=== PATIENT | female | born 1990 | race American Indian/Alaskan Native ===

== ENCOUNTER 2016-12-25 21:29 | Emergency (ER) | payer MEDICAID ==
[2016-12-25 22:48] LABS: Basophils % (Auto) 0.6 % (0.0-1.8); Eosinophils % (Auto) 0.7 % (0.0-4.3); Hematocrit 33.4 % (30.3-42.9); Mean Corpuscular HGB Conc 33 % (30-34); Mean Corpuscular Hemoglobin 28 pg (28-32); Mean Corpuscular Volume 85 fl (79-97); Platelet Count 171 K/mm3 (140-440); Red Blood Count 3.92 M/mm3 (3.65-5.03); Red Cell Distribution Width 16.3 % (13.2-15.2); White Blood Count 6.5 K/mm3 (4.5-11.0)
[2016-12-25 23:25] LABS: Alanine Aminotransferase 21 units/L (7-56); Albumin 4.1 g/dL (3.9-5); Albumin/Globulin Ratio 1.5 %; Alkaline Phosphatase 43 units/L (35-129); Anion Gap 16 mmol/L; BUN/Creatinine Ratio 14; Blood Urea Nitrogen 7 mg/dL (7-17); Carbon Dioxide 24 mmol/L (22-30); Chloride 98.8 mmol/L (98-107); Glucose 83 mg/dL (65-100); Lipase 28 units/L (13-60); Potassium 4.1 mmol/L (3.6-5.0); Sodium 135 mmol/L (137-145); Total Protein 6.8 g/dL (6.3-8.2)
[2016-12-26] MEDS ORDERED: NACL 0.9% 1000 ML 1,000 ML IV ONE (02:51)
[2016-12-26 04:18] LABS: Bilirubin,Urine NEG (Negative); Blood,Urine NEG (Negative); Ketones,Urine NEG (Negative); Leukocyte Esterase,Urine SM (Negative); Mucus,Urine FEW /HPF; Nitrite,Urine NEG (Negative); Protein,Urine <15 mg/dL mg/dL (Negative); Urobilinogen,Urine < 2.0 mg/dL (<2.0)
--- NOTE | 2016-12-26 04:46 | Ultrasound Report ---
FINAL REPORT PROCEDURE: US OB < = 14 WEEKS FETUS TECHNIQUE: Real-time transabdominal sonography of the uterus, placenta, amniotic fluid, adnexa, and fetus was performed with image documentation. Measurements were obtained to determine age/size. M-mode Doppler was used to document heartbeat. CPT 40279 HISTORY: preg, abd pain COMPARISON: No prior studies are available for comparison. FINDINGS: CRL: 23.3 mm, which corresponds to a gestational age of: 9 weeks, 0 days. Yolk Sac: Normal. Embryonic Cardiac Activity: 178 beats per minute Gestational Sac: Normal. Amniotic fluid: Normal. Cervix: Normal. Right Ovary: There is a 3.3 centimeter corpus luteal cyst. Left Ovary: Normal. Estimated delivery date: 07/31/2017 Uterus and adnexa: Normal. IMPRESSION: Single live intrauterine gestation at approximately 9 weeks. EDC by US 07/31/2017
--- NOTE | 2016-12-26 04:54 | Ultrasound Report ---
FINAL REPORT EXAM: US OB TRANSVAGINAL HISTORY: preg, abd pain COMPARISONS: Transabdominal ultrasound of the same date FINDINGS: Transvaginal grayscale, color Doppler and M-mode first-trimester ultrasound A single living intrauterine is present with recorded cardiac activity of 178 beats per minute and crown-rump length of approximately 23 millimeters, which corresponds to estimated gestational age of 9 weeks 0 days and estimated delivery date of 07/31/2017. A normal appearing 4-5 millimeter yolk sac is present. A nabothian cyst and small amount of free pelvic fluid are noted. The Functional right ovarian cyst measures up to 3.3 cm. The ovaries are otherwise sonographically unremarkable and measure 4.9 x 3.3 x 4.2 cm on the right and 3.3 x 1.7 x 1.9 cm on the left. IMPRESSION: Single living intrauterine with estimated gestational age of 9 weeks 0 days and delivery date of 07/31/2017. No acute complication identified.
--- NOTE | 2016-12-26 06:15 | Emergency Department Report ---
HPI - General Chief Complaint: Nausea/Vomiting/Diarrhea Time Seen by Provider: 12/26/16 02:45 - HPI HPI: This is a 26-year-old female presents the emergency department with a complaint of some nausea, vomiting and some generalized weakness and/or dizziness that started earlier this evening. She also complained of little bit of lower abdominal pressure. She denies any vaginal bleeding, dysuria. She does complain of some vaginal discharge that started this morning as well. She denies any history of STD. The patient says she is about 7 weeks' . With this she is at with one previous miscarriage and one child. She had a home test and this was confirmed at the health department. She is not currently on vitamins. She does not have any PROMOTIONS COORDINATOR. ED Past Medical Hx - Past Medical History Hx Hypertension: No Hx Congestive Heart Failure: No Hx Diabetes: No Hx Deep Vein Thrombosis: No Hx Renal Disease: No Hx Sickle Cell Disease: No Hx Seizures: No Hx Asthma: No Hx COPD: No Additional medical history: prenatel vit - Surgical History Additional Surgical History: d&c - Social History Smoking Status: Never Smoker Substance Use Type: None - Medications Home Medications: Home Medications Medication Instructions Recorded Confirmed Last Taken Type Vit 90/Iron Fum/Folic 1 tab PO DAILY 03/30/14 06/10/14 06/10/14 10:00 History [ Formula] Ciprofloxacin HCl [Ciprofloxacin 500 mg PO BID #10 tablet 12/22/15 Unknown Rx TAB] Ferrous Sulfate [Feosol 325 MG tab] 325 mg PO QDAY #30 tablet 12/22/15 Unknown Rx Ibuprofen [Motrin] 800 mg PO Q8HR PRN #30 tablet 12/22/15 Unknown Rx Doxylamine Succinate/Vit B6 2 each PO QHS PRN #20 tablet. 12/26/16 Unknown Rx [Sterling Fung 10-10 mg Tablet] Vit No.130/Iron/Folic 1 each PO QDAY #30 tablet 12/26/16 Unknown Rx [ Tablet] metroNIDAZOLE 0.75% [Metrogel 1 applicatio VG QHS #1 tube 12/26/16 Unknown Rx 0.75% TOPICAL] ED Review of Systems ROS: Stated complaint: N/V 7 WEEKS Other details as noted in HPI Comment: All other systems reviewed and negative Constitutional: denies: chills, fever Eyes: denies: eye pain, eye discharge, vision change ENT: denies: ear pain, throat pain Respiratory: denies: cough, shortness of breath, wheezing Cardiovascular: denies: chest pain, palpitations Gastrointestinal: abdominal pain, nausea, vomiting Genitourinary: denies: urgency, dysuria, discharge Musculoskeletal: denies: back pain, joint swelling, arthralgia Skin: denies: rash, lesions Neurological: other (dizziness). denies: headache Physical Exam - Physical Exam Vital Signs: Vital Signs 12/25/16 12/26/16 21:43 01:58 Temperature 98.8 F 98.7 F Pulse Rate 76 75 Respiratory 18 17 Rate Blood Pressure 107/53 Blood Pressure 98/56 [Left] O2 Sat by Pulse 100 99 Oximetry Physical Exam: GENERAL: The patient is well-developed well-nourished. HENT: Normocephalic. Atraumatic. Patient has moist mucous membranes. EYES: Extraocular motions are intact. Pupils equal reactive to light bilaterally. No nystagmus. NECK: Supple. Trachea is midline. CHEST/LUNGS: Clear to auscultation. There is no respiratory distress noted. HEART/CARDIOVASCULAR: Regular. There is no tachycardia. There is no gallop rub or murmur. ABDOMEN: Abdomen is soft, nontender. Patient has normal bowel sounds. There is no abdominal distention. SKIN: There is no rash. There is no edema. There is no diaphoresis. NEURO: The patient is awake, alert, and oriented. The patient is cooperative. The patient has no focal neurologic deficits. The patient has normal speech. MUSCULOSKELETAL: There is no tenderness or deformity. There is no limitation range of motion. There is no evidence of acute injury. : There is a mild to moderate amount of some malodorous yellow discharge in the vaginal vault. ED Course Vital Signs 12/25/16 12/26/16 21:43 01:58 Temperature 98.8 F 98.7 F Pulse Rate 76 75 Respiratory 18 17 Rate Blood Pressure 107/53 Blood Pressure 98/56 [Left] O2 Sat by Pulse 100 99 Oximetry ED Medical Decision Making - Lab Data Result diagrams: 12/25/16 22:00 12/25/16 22:00 - Radiology Data Radiology results: report reviewed PROCEDURE: US OB lt; = 14 WEEKS FETUS TECHNIQUE: Real-time transabdominal sonography of the uterus, placenta, amniotic fluid, adnexa, and fetus was performed with image documentation. Measurements were obtained to determine age/size. M-mode Doppler was used to document heartbeat. CPT 60009 HISTORY: preg, abd pain COMPARISON: No prior studies are available for comparison. FINDINGS: CRL: 23.3 mm, which corresponds to a gestational age of: 9 weeks, 0 days. Yolk Sac: Normal. Embryonic Cardiac Activity: 178 beats per minute Gestational Sac: Normal. Amniotic fluid: Normal. Cervix: Normal. Right Ovary: There is a 3.3 centimeter corpus luteal cyst. Left Ovary: Normal. Estimated delivery date: 07/31/2017 Uterus and adnexa: Normal. IMPRESSION: Single live intrauterine gestation at approximately 9 weeks. EDC by US 07/31/2017 Transcribed By: CO Dictated By: DARREL CHOWDARY MD Electronically Authenticated By: DARREL CHOWDARY MD Signed Date/Time: 12/26/16 - Medical Decision Making 26-year-old female presents with hyperemesis gravidarum. Attempted at first to avoid Zofran but she was unable to keep down liquids or get rid of the nausea and eventually she requested the Zofran despite knowing the very small percentage chance of risk to . She was given IV fluid resuscitation. Eventually she was able to keep down crackers and juice. Ultrasound shows intrauterine . She was started on vitamins. Pelvic exam showed malodorous yellow discharge that came back positive for trichomoniasis. After speaking with PROMOTIONS COORDINATOR, she was started on MetroGel vaginally. She will be contacted if gonorrhea or chlamydia comes back positive. She was given multiple referrals for PROMOTIONS COORDINATOR. Vital signs stable including being afebrile. - Differential Diagnosis , miscarriage, hyperemesis gravidarum, food poisoning Critical Care Time: No Critical care attestation.: If time is entered above; I have spent that time in minutes in the direct care of this critically ill patient, excluding procedure time. ED Disposition Clinical Impression: Trichomoniasis Qualifiers: Weeks of gestation: 9 weeks Qualified Code(s): Z3A.09 - 9 weeks gestation of Hyperemesis Qualifiers: Vomiting type: unspecified Nausea presence: unspecified Qualified Code(s): R11.10 - Vomiting, unspecified Nausea & vomiting Qualifiers: Vomiting type: unspecified Vomiting Intractability: non-intractable Qualified Code(s): R11.2 - Nausea with vomiting, unspecified Disposition: DC-01 TO HOME OR SELFCARE Is pt being admited?: No Condition: Stable Instructions: (ED), Hyperemesis Gravidarum (ED), Trichomoniasis (ED) , Acute Nausea and Vomiting (ED) Additional Instructions: Please follow up with a PROMOTIONS COORDINATOR in the next few days. Increase your oral rehydration. Use the antibiotics, MetroGel, as prescribed. I have started you on vitamins. Return to the emergency Department with any worsening of her symptoms, inability to stay hydrated or intractable vomiting, vaginal bleeding, or any acute distress. Prescriptions: Doxylamine Succinate/Vit B6 [Sterling Fung 10-10 mg Tablet] 2 each PO QHS PRN #20 tablet. PRN Reason: Nausea metroNIDAZOLE 0.75% [Metrogel 0.75% TOPICAL] 1 applicatio VG QHS #1 tube Vit No.130/Iron/Folic [ Tablet] 1 each PO QDAY #30 tablet Referrals: [facility] [Primary Care Provider] - 3-5 Days [facility] [Provider Group] - 3-5 Days [facility] [Provider Group] - 3-5 Days [facility] [Provider Group] - 3-5 Days Forms: Work/School Release Form(ED) Time of Disposition: 06:37
[2016-12-26] MEDS ORDERED: ZOFRAN IV ONE (06:17)
[2016-12-26] MEDS ORDERED: ZOFRAN ODT ONE (06:20)
[2016-12-26] MEDS ORDERED: NACL 0.9% 500 ML 500 ML IV ONE (06:33)
[2016-12-26 09:29] VITALS: BP 106/64
== END 2016-12-26 10:16 | disposition home or self-care (01) ==
LOC: ED 21:29
DX: O26.891 Other specified pregnancy related conditions, first trimester (principal); A59.9 Trichomoniasis, unspecified; O21.0 Mild hyperemesis gravidarum; Z3A.09 9 weeks gestation of pregnancy
CPT/HCPCS: 36415; 76801; 76817; 80053; 81001; 83690; 84703; 85025; 87210; 93005; 93010; 96361; 96374; 99285; J7030; J7040; Q0162

== ENCOUNTER 2017-02-19 17:16 | Emergency (ER) | payer MEDICAID ==
[2017-02-19 18:51] VITALS: BP 106/62
== END 2017-02-20 00:15 | disposition left against medical advice (07) ==
LOC: ED 17:16
DX: R42 Dizziness and giddiness (principal); Z53.21 Procedure and treatment not carried out due to patient leaving prior to being seen by health care provider
CPT/HCPCS: 87400

== ENCOUNTER 2017-02-21 18:00 | Emergency (ER) | payer MEDICAID ==
[2017-02-21 21:00] LABS: Basophils % (Auto) 0.2 % (0.0-1.8); Eosinophils % (Auto) 0.2 % (0.0-4.3); Hematocrit 33.9 % (30.3-42.9); Hemoglobin 11.3 gm/dl (10.1-14.3); Lymphocytes # (Auto) 2.2 K/mm3 (1.2-5.4); Lymphocytes % (Auto) 30.8 % (13.4-35.0); Mean Corpuscular HGB Conc 33 % (30-34); Mean Corpuscular Hemoglobin 30 pg (28-32); Mean Corpuscular Volume 89 fl (79-97); Monocytes # (Auto) 0.5 K/mm3 (0.0-0.8); Monocytes % (Auto) 7.4 % (0.0-7.3); Platelet Count 184 K/mm3 (140-440); Red Blood Count 3.79 M/mm3 (3.65-5.03); Red Cell Distribution Width 14.3 % (13.2-15.2)
[2017-02-21] MEDS ORDERED: ZOFRAN ODT PO ONE ×2 (21:10→21:11)
[2017-02-21] MEDS ORDERED: ZOFRAN ODT ONE (21:12)
[2017-02-21 21:24] LABS: BUN/Creatinine Ratio 20; Blood Urea Nitrogen 10 mg/dL (7-17); Calcium 9.2 mg/dL (8.4-10.2); Hemolysis Index 7
--- NOTE | 2017-02-22 04:52 | Emergency Department Report ---
ED Abdominal Pain HPI - General Chief Complaint: Weakness Stated Complaint: VOMITING/DIZZINESS 16 WEEKS PREG Time Seen by Provider: 02/22/17 04:10 Source: patient, family Mode of arrival: Ambulatory Limitations: No Limitations - History of Present Illness Initial Comments: Patient here report that she is feeling weak she is 16 weeks and she is having nausea and vomiting in. She said she has MED PEDS. Patient reports that she is having some abdominal pain and she can't tell if his round ligament pain because she is been having nausea and vomited with this. She is also reported that she was diagnosed with hypertension today and reports she was having generalized weakness. Patient blood pressure is 106/64 in triage here. She said she vomited 66. Pelvic pain is 2-3-10. Crampy she denies any sexual activity within the last 48 hours. She says she had small amount of vaginal bleeding when she went to PE yesterday morning but she hadn't had any since she said when she wiped she saw light blood. She did not call her MED PEDS and told her MED PEDS. She says she feels like she has a urinary tract infection because she is having nausea vomiting and pelvic pain and when she had a urinary tract infection and past status what happened. Patient denies eating anything new over the last 24 hours. She denies any back pain. Denies any cough or chest pain. No [id number] medication taken. She is on vitamin and she says she has had ultrasound in the past that shows that the baby was in her uterus. MD Complaint: abdominal pain, other (weakness with nausea and vomiting) Onset/Timin -: days(s) Location: suprapubic Radiation: none Migration to: no migration Severity: mild Severity scale (0 -10): 3 Quality: cramping Consistency: intermittent Improves With: nothing Worsens With: vomiting Context: other (patient at 16 weeks) Associated Symptoms: nausea, vomiting. denies: diarrhea, fever, chills, constipation, dysuria, hematemesis, hematochezia, melena, hematuria, anorexia, syncope Treatments Prior to Arrival: other (none) - Related Data Home Medications Medication Instructions Recorded Confirmed Last Taken Vit 90/Iron Fum/Folic 1 tab PO DAILY 03/30/14 06/10/14 06/10/14 10:00 [ Formula] Previous Rx's Medication Instructions Recorded Last Taken Type Ciprofloxacin HCl [Ciprofloxacin 500 mg PO BID #10 tablet 12/22/15 Unknown Rx TAB] Ferrous Sulfate [Feosol 325 MG tab] 325 mg PO QDAY #30 tablet 12/22/15 Unknown Rx Ibuprofen [Motrin] 800 mg PO Q8HR PRN #30 tablet 12/22/15 Unknown Rx Vit No.130/Iron/Folic 1 each PO QDAY #30 tablet 12/26/16 Unknown Rx [ Tablet] metroNIDAZOLE 0.75% [Metrogel 1 applicatio VG QHS #1 tube 12/26/16 Unknown Rx 0.75% TOPICAL] Nitrofurantoin Monohyd/M-Cryst 100 mg PO Q12H 7 Days #14 capsule 02/22/17 Unknown Rx [Macrobid 100 mg Capsule] Ondansetron [Zofran Odt] 4 mg PO Q8HR PRN 5 Days #15 02/22/17 Unknown Rx tab.rapdis Allergies Allergy/AdvReac Type Severity Reaction Status Date / Time amoxicillin Allergy Hives Verified 02/21/17 19:24 haloperidol [From Haldol] Allergy Hives Verified 02/02/13 12:52 haloperidol lactate Allergy Hives Verified 02/02/13 12:52 [From Haldol] Penicillins Allergy Hives Verified 02/02/13 12:52 ED Review of Systems ROS: Stated complaint: VOMITING/DIZZINESS 16 WEEKS PREG Other details as noted in HPI Comment: All other systems reviewed and negative Constitutional: no symptoms reported Eyes: denies: eye pain ENT: denies: throat pain, congestion Respiratory: no symptoms reported Cardiovascular: denies: chest pain, palpitations, dyspnea on exertion, edema, syncope, paroxysmal nocturnal dyspnea Gastrointestinal: abdominal pain, nausea, vomiting. denies: diarrhea, constipation, hematemesis, melena, hematochezia Genitourinary: denies: urgency, dysuria, frequency, hematuria, discharge Musculoskeletal: denies: back pain, joint swelling, arthralgia, myalgia Skin: denies: rash Neurological: weakness. denies: headache, numbness, paresthesias, confusion, abnormal gait, vertigo ED Past Medical Hx - Past Medical History Previous Medical History?: Yes Hx Hypertension: No Hx Congestive Heart Failure: No Hx Diabetes: No Hx Deep Vein Thrombosis: No Hx Renal Disease: No Hx Sickle Cell Disease: No Hx Seizures: No Hx Asthma: No Hx COPD: No Additional medical history: prenatel vit - Surgical History Past Surgical History?: Yes Additional Surgical History: d&c - Family History Family history: hypertension - Social History Smoking Status: Never Smoker Substance Use Type: None - Medications Home Medications: Home Medications Medication Instructions Recorded Confirmed Last Taken Type Vit 90/Iron Fum/Folic 1 tab PO DAILY 03/30/14 06/10/14 06/10/14 10:00 History [ Formula] Ciprofloxacin HCl [Ciprofloxacin 500 mg PO BID #10 tablet 12/22/15 Unknown Rx TAB] Ferrous Sulfate [Feosol 325 MG tab] 325 mg PO QDAY #30 tablet 12/22/15 Unknown Rx Ibuprofen [Motrin] 800 mg PO Q8HR PRN #30 tablet 12/22/15 Unknown Rx Vit No.130/Iron/Folic 1 each PO QDAY #30 tablet 12/26/16 Unknown Rx [ Tablet] metroNIDAZOLE 0.75% [Metrogel 1 applicatio VG QHS #1 tube 12/26/16 Unknown Rx 0.75% TOPICAL] Nitrofurantoin Monohyd/M-Cryst 100 mg PO Q12H 7 Days #14 capsule 02/22/17 Unknown Rx [Macrobid 100 mg Capsule] Ondansetron [Zofran Odt] 4 mg PO Q8HR PRN 5 Days #15 02/22/17 Unknown Rx tab.rapdis ED Physical Exam - General Limitations: No Limitations General appearance: alert, in no apparent distress - Head Head exam: Present: atraumatic, normocephalic, normal inspection - Eye Eye exam: Present: normal appearance, PERRL, EOMI. Absent: periorbital swelling , periorbital tenderness Pupils: Present: normal accommodation - ENT ENT exam: Present: normal exam, normal orophraynx, mucous membranes moist, TM's normal bilaterally, normal external ear exam - Neck Neck exam: Present: normal inspection, full ROM. Absent: tenderness, meningismus, lymphadenopathy, thyromegaly - Respiratory Respiratory exam: Present: normal lung sounds bilaterally. Absent: respiratory distress, chest wall tenderness, accessory muscle use - Cardiovascular Cardiovascular Exam: Present: regular rate, normal rhythm, normal heart sounds. Absent: systolic murmur, diastolic murmur - GI/Abdominal GI/Abdominal exam: Present: soft, normal bowel sounds. Absent: distended, tenderness, guarding, rebound, rigid, organomegaly, mass, bruit, pulsatile mass , hernia - External exam: Present: normal external exam. Absent: erythema, swelling, ecchymosis, bleeding - Extremities Exam Extremities exam: Present: normal inspection, full ROM, normal capillary refill , other (no clubbing, cyanosis or edema. +2 pulses to all extremities and no neurovascular compromise.). Absent: tenderness, pedal edema, joint swelling, calf tenderness - Back Exam Back exam: Present: normal inspection, full ROM. Absent: tenderness, CVA tenderness (R), CVA tenderness (L), muscle spasm, paraspinal tenderness, vertebral tenderness - Neurological Exam Neurological exam: Present: alert, oriented X3, normal gait. Absent: motor sensory deficit, reflexes normal - Psychiatric Psychiatric exam: Present: normal affect, normal mood - Skin Skin exam: Present: warm, dry, intact, normal color. Absent: rash ED Course Vital Signs 02/21/17 02/21/17 19:14 21:01 Temperature 98.2 F 98.8 F Pulse Rate 90 100 H Respiratory 16 20 Rate Blood Pressure 106/64 Blood Pressure 107/59 [Right] O2 Sat by Pulse 99 97 Oximetry - Reevaluation(s) Reevaluation #1: 02/22/17 08:25 Patient received 1 L of IV fluid normal saline in emergency room, she received Zofran in triage and received additional Zofran IV in emergency room. Patient nausea has resolved. She has not had any vomiting or abdominal pain since I examined her. Her urinalysis is positive for 80 ketones and urinary tract infection. Patient able to drink fluid and she drank 3 cups of cranberry juice and ate to [place] packs of crackers without any nausea or vomiting. I went over her labs with her and she voiced understanding. Patient allergic to penicillin so I cannot give her IV 02/22/17. Rocephin. She'll be given prescription for Macrobid. Reevaluation #2: 02/22/17 08:48 I discussed the patient that she has protein in her urine which is a small amount and she said that her MED PEDS is aware of it and monitoring this. Patient had no episode of vaginal bleeding in emergency room. I discussed with her that I'll send her home on Zofran and Macrobid. Discussed ultrasound report with patient. ED Medical Decision Making - Lab Data Result diagrams: 02/21/17 20:05 02/21/17 20:05 Lab Results 02/21/17 02/21/17 02/21/17 Range/Units 20:03 20:05 20:05 WBC 7.3 (4.5-11.0) K/mm3 RBC 3.79 (3.65-5.03) M/mm3 Hgb 11.3 (10.1-14.3) gm/dl Hct 33.9 (30.3-42.9) % MCV 89 (79-97) fl MCH 30 (28-32) pg MCHC 33 (30-34) % RDW 14.3 (13.2-15.2) % Plt Count 184 (140-440) K/mm3 Lymph % (Auto) 30.8 (13.4-35.0) % [place] % (Auto) 7.4 H (0.0-7.3) % Eos % (Auto) 0.2 (0.0-4.3) % Baso % (Auto) 0.2 (0.0-1.8) % Lymph # 2.2 (1.2-5.4) K/mm3 [place] # 0.5 (0.0-0.8) K/mm3 Eos # 0.0 (0.0-0.4) K/mm3 Baso # 0.0 (0.0-0.1) K/mm3 Seg Neutrophils % 61.4 (40.0-70.0) % Seg Neutrophils # 4.5 (1.8-7.7) K/mm3 Sodium (137-145) mmol/L Potassium (3.6-5.0) mmol/L Chloride (98-107) mmol/L Carbon Dioxide (22-30) mmol/L Anion Gap mmol/L BUN (7-17) mg/dL Creatinine (0.7-1.2) mg/dL Estimated GFR ml/min BUN/Creatinine Ratio % Glucose (65-100) mg/dL Calcium (8.4-10.2) mg/dL Magnesium (1.7-2.3) mg/dL HCG, Quant 60352 H (0-4) mIU/mL Urine Color (Yellow) Urine Turbidity (Clear) Urine pH (5.0-7.0) Ur Specific [place] (1.003-1.030) Urine Protein (Negative) mg/dL Urine Glucose (UA) (Negative) mg/dL Urine Ketones (Negative) mg/dL Urine Blood (Negative) Urine Nitrite (Negative) Urine Bilirubin (Negative) Urine Urobilinogen (<2.0) mg/dL Ur Leukocyte Esterase (Negative) Urine WBC (Auto) (0.0-6.0) /HPF Urine RBC (Auto) (0.0-6.0) /HPF U Epithel Cells (Auto) (0-13.0) /HPF Urine Mucus /HPF Blood Type O POSITIVE Antibody Screen Negative 02/21/17 02/22/17 Range/Units 20:05 Unknown WBC (4.5-11.0) K/mm3 RBC (3.65-5.03) M/mm3 Hgb (10.1-14.3) gm/dl Hct (30.3-42.9) % MCV (79-97) fl MCH (28-32) pg MCHC (30-34) % RDW (13.2-15.2) % Plt Count (140-440) K/mm3 Lymph % (Auto) (13.4-35.0) % [place] % (Auto) (0.0-7.3) % Eos % (Auto) (0.0-4.3) % Baso % (Auto) (0.0-1.8) % Lymph # (1.2-5.4) K/mm3 [place] # (0.0-0.8) K/mm3 Eos # (0.0-0.4) K/mm3 Baso # (0.0-0.1) K/mm3 Seg Neutrophils % (40.0-70.0) % Seg Neutrophils # (1.8-7.7) K/mm3 Sodium 137 (137-145) mmol/L Potassium 4.0 (3.6-5.0) mmol/L Chloride 99.5 (98-107) mmol/L Carbon Dioxide 21 L (22-30) mmol/L Anion Gap 21 mmol/L BUN 10 (7-17) mg/dL Creatinine 0.5 L (0.7-1.2) mg/dL Estimated GFR > 60 ml/min BUN/Creatinine Ratio 20 % Glucose 67 (65-100) mg/dL Calcium 9.2 (8.4-10.2) mg/dL Magnesium 1.70 (1.7-2.3) mg/dL HCG, Quant (0-4) mIU/mL Urine Color Yellow (Yellow) Urine Turbidity Clear (Clear) Urine pH 5.0 (5.0-7.0) Ur Specific [place] 1.029 (1.003-1.030) Urine Protein 30 mg/dl (Negative) mg/dL Urine Glucose (UA) Neg (Negative) mg/dL Urine Ketones 80 (Negative) mg/dL Urine Blood Neg (Negative) Urine Nitrite Neg (Negative) Urine Bilirubin Neg (Negative) Urine Urobilinogen 2.0 (<2.0) mg/dL Ur Leukocyte Esterase Sm (Negative) Urine WBC (Auto) 17.0 H (0.0-6.0) /HPF Urine RBC (Auto) 6.0 (0.0-6.0) /HPF U Epithel Cells (Auto) 11.0 (0-13.0) /HPF Urine Mucus 3+ /HPF Blood Type Antibody Screen Urine culture pending - Radiology Data Radiology results: report reviewed Ultrasound OB reveals patient with single intrauterine at 17 weeks. heart tone 168 bpm. Placental bio appropriate . biometric profile is normal. weight is 171 g. Gross is appropriate. Estimated due date earlier scan was 08/02/2017 Critical care attestation.: If time is entered above; I have spent that time in minutes in the direct care of this critically ill patient, excluding procedure time. ED Disposition Clinical Impression: Nausea and vomiting during prior to 22 weeks gestation, Acute cystitis without hematuria, Proteinuria affecting in second trimester , Dehydration during Abdominal pain in Qualifiers: Trimester: second trimester Qualified Code(s): O26.892 - Other specified related conditions, second trimester Disposition: DC-01 TO HOME OR SELFCARE Is pt being admited?: No Does the pt Need Aspirin: No Condition: Stable Instructions: Dehydration (ED), Urinary Tract Infection in Women (ED), Acute Nausea and Vomiting (ED), Abdominal Pain in (ED) Additional Instructions: Please increase your fluid intake to prevent dehydration Takes Zofran for nausea and vomiting Take Macrobid for urinary tract infection call your MED PEDS office and let them know that you were treated in emergency room for urinary tract infection, abdominal pain and nausea or vomiting. You have a small amount of protein in your urine and he will need to let your OB /PILL MACHINE OPERATOR know. avoid acidic and spicy food as these were irritating to her stomach lining and can cause nausea or vomiting Take Macrobid with yogurt and always take your vitamin with crackers and or banana. If you develop, recurrent and vaginal bleeding, increase in abdominal pain, nausea and vomiting that is not relieved by medication return to the emergency room otherwise follow-up we MED PEDS in the morning Prescriptions: Nitrofurantoin Monohyd/M-Cryst [Macrobid 100 mg Capsule] 100 mg PO Q12H 7 Days # 14 capsule Ondansetron [Zofran Odt] 4 mg PO Q8HR PRN 5 Days #15 tab.rapdis PRN Reason: Nausea And Vomiting Referrals: your, MED PEDS [Other] - 02/23/17 Forms: Accompanied Note, Work/School Release Form(ED)
[2017-02-22] MEDS ORDERED: NACL 0.9% 1000 ML 1,000 ML IV ONE (05:08)
[2017-02-22 05:21] LABS: Bilirubin,Urine NEG (Negative); Blood,Urine NEG (Negative); Color,Urine Yellow (Yellow); Mucus,Urine 3+ /HPF; Nitrite,Urine NEG (Negative)
--- NOTE | 2017-02-22 06:14 | Ultrasound Report ---
FINAL REPORT PROCEDURE: US OB > = 14 WEEKS FETUS TECHNIQUE: Real-time transabdominal sonography of the uterus, placenta, amniotic fluid, adnexa, and fetus was performed with image documentation. Measurements were obtained to determine age/size. M-mode Doppler was used to document heartbeat. CPT 08918 HISTORY: abdominal pain COMPARISON: No prior studies are available for comparison. FINDINGS: ADDITIONAL GESTATION: None. GENERAL: IUP: Single living intrauterine . Position: Cephalic Placental position: Anterior, without previa. Amniotic fluid volume: Normal. MATERNAL: Uterus: Within normal limits. Cervical length: 3.6 cm. Internal Os: Closed. FETUS: Heart rate and rhythm: 158 anatomic survey: Not performed MEASUREMENTS: BPD: 3.5 centimeters correspond is 17 weeks and 1 day HC: 13.6 centimeters correspond is 17 weeks and 1 day AC: 10.6 centimeters correspond is 16 weeks and 3 days FL: 2.4 centimeters correspond is 17 weeks and 1 day Mean Gestational Age (composite criteria): 17 weeks Ratio biometry: Normal. Estimated Weight: 171 grams. Interval growth: Appropriate. Estimated Due Date (earliest scan): 08/02/2017 IMPRESSION: Single intrauterine gestation at 17 weeks. Estimated due date: 08/02/2017. Normal survey with appropriate growth.
[2017-02-22 09:26] VITALS: BP 108/60
== END 2017-02-22 09:24 | disposition home or self-care (01) ==
LOC: ED 18:00
DX: O21.9 Vomiting of pregnancy, unspecified (principal); O12.12 Gestational proteinuria, second trimester; O23.32 Infections of other parts of urinary tract in pregnancy, second trimester; N30.00 Acute cystitis without hematuria; O26.892 Other specified pregnancy related conditions, second trimester; Z3A.16 16 weeks gestation of pregnancy; E86.0 Dehydration; Z88.1 Allergy status to other antibiotic agents; Z88.0 Allergy status to penicillin; Z88.8 Allergy status to other drugs, medicaments and biological substances
CPT/HCPCS: 36415; 76805; 80048; 81001; 83735; 84702; 85025; 86850; 86900; 86901; 96360; 99284; J7030; Q0162

== ENCOUNTER 2017-03-28 01:13 | Observation (INO) | payer MEDICAID ==
[2017-03-28] MEDS ORDERED: LACTATED RINGERS 500 ML IV ONE (01:39)
[2017-03-28] MEDS ORDERED: LACTATED RINGERS 1,000 ML IV SCH (02:00)
[2017-03-28 02:47] LABS: Bacteria,Urine 1+ /HPF (Negative); Bilirubin,Urine NEG (Negative); Blood,Urine NEG (Negative); Color,Urine Yellow (Yellow); Mucus,Urine 3+ /HPF; Nitrite,Urine NEG (Negative); Protein,Urine <15 mg/dL mg/dL (Negative)
[2017-03-28 02:54] LABS: Basophils # (Auto) 0.1 K/mm3 (0.0-0.1); Basophils % (Auto) 0.7 % (0.0-1.8); Eosinophils # (Auto) 0.1 K/mm3 (0.0-0.4); Eosinophils % (Auto) 1.1 % (0.0-4.3); Hematocrit 30.3 % (30.3-42.9); Hemoglobin 10.5 gm/dl (10.1-14.3); Lymphocytes # (Auto) 3.1 K/mm3 (1.2-5.4); Lymphocytes % (Auto) 29.3 % (13.4-35.0); Mean Corpuscular HGB Conc 35 % (30-34); Mean Corpuscular Hemoglobin 31 pg (28-32); Mean Corpuscular Volume 89 fl (79-97); Monocytes # (Auto) 0.8 K/mm3 (0.0-0.8); Monocytes % (Auto) 7.6 % (0.0-7.3); Platelet Count 174 K/mm3 (140-440); Red Blood Count 3.39 M/mm3 (3.65-5.03)
[2017-03-28] MEDS ORDERED: CLEOCIN 900 MG/50 mL 900 MG/50 ML BAG IV ONE (03:57)
[2017-03-28] MEDS: ZOFRAN IV PRN ×2 (05:27→11:42)
[2017-03-28] MEDS ORDERED: COLACE PO PRN (05:33)
[2017-03-28] MEDS ORDERED: TYLENOL PO PRN (05:33)
[2017-03-28] MEDS ORDERED: AMBIEN PO PRN (05:33)
[2017-03-28] MEDS ORDERED: ALUM-MAG HYDROX-SIMETH 200-200-20MG/5ML PO PRN (05:33)
[2017-03-28] MEDS ORDERED: MILK OF MAGNESIA PO PRN (05:33)
[2017-03-28] MEDS ORDERED: MYLICON PO PRN (05:33)
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
[2017-03-28] MEDS ORDERED: CLEOCIN 900 MG/50 mL 900 MG/50 ML BAG IV SCH (06:00)
--- NOTE | 2017-03-28 08:19 | Ultrasound Report ---
FINAL REPORT EXAM: US RENAL BILAT HISTORY: pyelo COMPARISONS: None. FINDINGS: Grayscale and color Doppler ultrasound evaluation of the kidneys and bladder The right kidney measures 9 cm and the left kidney measures 12.3 cm in length. There is no hydronephrosis or echogenic shadowing foci to suggest nephrolithiasis. Possible layering debris/sediment in the urinary bladder, which is partially imaged. IMPRESSION: No hydronephrosis. Question layering echogenic debris/sediment in the partially imaged urinary bladder (versus artifact.) Correlation with urinalysis is requested.
--- NOTE | 2017-03-28 08:25 | Ultrasound Report ---
FINAL REPORT EXAM: US OB > = 14 WEEKS FETUS HISTORY: FWB; pyelo COMPARISONS: 02/22/2017 FINDINGS: Transabdominal grayscale, color Doppler and M-mode limited 2nd trimester ultrasound Single living intrauterine in cephalic presentation with recorded cardiac activity of 139 beats per minute and subjectively normal amniotic fluid volume. Cervix appears closed and measures approximately 4.2 cm in length. No evident placenta previa. Placenta is anterior. Estimated gestational age is 21 weeks 5 days, which is concordant with prior established dating. Estimated weight is 444 grams, which corresponds to the 23rd percentile. Biparietal diameter is 5.1 cm Head circumference is 19.8 cm Abdominal circumference is 17.1 cm Femoral length is 3.5 cm Limited evaluation of anatomy is grossly unremarkable. IMPRESSION: Single living intrauterine with concordant size and dates.
[2017-03-28] MEDS: LACTATED RINGERS 1,000 ML IV SCH ×2 (08:28→18:43)
[2017-03-28] MEDS ORDERED: PRENATAL VITAMIN PO SCH (10:00)
[2017-03-28] MEDS ORDERED: Fluarix Quad 2017-2018(36 MOS+ IM ONE (12:00)
[2017-03-28] MEDS: CLEOCIN 900 MG/50 mL 900 MG/50 ML BAG IV SCH ×2 (12:31→20:11)
[2017-03-28] MEDS: NORCO 5/325 PO PRN (20:03)
[2017-03-29] MEDS: ZOFRAN IV PRN (00:19)
[2017-03-29] MEDS: NORCO 5/325 PO PRN ×2 (00:25→12:27)
[2017-03-29] MEDS: CLEOCIN 900 MG/50 mL 900 MG/50 ML BAG IV SCH ×2 (04:11→12:10)
[2017-03-29] MEDS: LACTATED RINGERS 1,000 ML IV SCH (07:11)
[2017-03-29 12:15] VITALS: BP 102/58
--- NOTE | 2017-03-29 13:07 | Discharge Summary ---
Providers - Providers Date of Admission: 03/28/17 05:31 Date of discharge: 03/29/17 (pt asks to be discharged) Attending physician: [facility]RE[facility] Primary care physician: [facility] Hospitalization Condition: Good Hospital course: uncomplicated treatment of recurrent UTI r/o pyelo Pt requests to go home Has a f/u PNV tomorrow. Will d/c today with RX Clindamycin po and Phenergan po. Pt will call with any concerns, Disposition: DC-01 TO HOME OR SELFCARE Core Measure Documentation - Palliative Care Palliative Care/ Comfort Measures: Not Applicable - Core Measures Any of the following diagnoses?: none - VTE Discharge Requirements Deep Vein Thrombosis/Pulmonary Embolism Present on Admission: No Has pt received <5 days of overlap therapy or INR<2.0: No Anticoagulant overlap therapy prescribed at discharge: No Contraindication No Overlap Therapy order at DC: Not Indicated - Acute [place] Discharge Requirements Aspirin at discharge: No Reason for no aspirin on DC: Medical contraindication LORENE/ARB for LVSD if EF <40%: Not Applicable Beta yrn at discharge: No Reason for no beta yrn on DC: Medical contraindication Statin for LDL = or >100 mg/dl on DC: Not Applicable - Heart Failure Discharge Requirements LORENE/ARB for LVSD if EF <40%: Not Applicable Beta yrn at discharge: No Reason for no beta yrn on DC: Medical contraindication - Stroke Discharge Requirements Statin for LDL = or >70 mg/dl on DC: Not Applicable Anticoag for atrial fib/atrial flutter: Not Applicable Antithrombotic for ischemic stroke: No Reason for no antithrombotic on DC: Medical Contraindication Exam - Constitutional Vitals: Temp Pulse Resp BP Pulse Ox 98.0 F 74 18 102/58 99 03/29/17 12:12 03/29/17 12:18 03/29/17 12:12 03/29/17 12:18 03/29/17 12:18 General appearance: Present: no acute distress, well-nourished - EENT Eyes: Present: PERRL ENT: hearing intact, clear oral mucosa - Neck Neck: Present: supple, normal ROM - Respiratory Respiratory effort: normal Respiratory: bilateral: CTA - Cardiovascular Heart Sounds: Present: S1 & S2. Absent: rub, click - Extremities Extremities: pulses symmetrical, No edema Peripheral Pulses: within normal limits - Abdominal General gastrointestinal: Present: soft, non-tender, non-distended, normal bowel sounds Female genitourinary: Present: normal - Rectal Rectal Exam: deferred - Musculoskeletal Musculoskeletal: gait normal, strength equal bilaterally - Psychiatric Psychiatric: appropriate mood/affect, intact judgment & insight - Neurologic Neurologic: CNII-XII intact, moves all extremities Plan Activity: no restrictions Weight Bearing Status: Weight Bear as Tolerated Diet: regular Special Instructions: no heavy lifting Follow up with: ROBERT STREETER MD [Primary Care Provider] - 03/30/17 (Take medications as prescribed. Drink a lot of water. Keep appointment as scheduled for tomorrow. Call with concerns.) Prescriptions: Clindamycin [Clindamycin CAP] 300 mg PO BID #10 cap Nitrofurantoin [place]/M-Cryst [Macrobid] 100 mg PO Q12HR #10 capsule Promethazine [Phenergan TAB] 25 mg PO Q6HR PRN #12 tab PRN Reason: Nausea
== END 2017-03-29 14:46 | disposition home or self-care (01) ==
LOC: TRG 01:13 → LD 05:31
PROVIDERS: ADMIT Obstetrics & Gynecology; ATTEND Obstetrics & Gynecology
DX: O23.02 Infections of kidney in pregnancy, second trimester (principal); O60.02 Preterm labor without delivery, second trimester; O62.9 Abnormality of forces of labor, unspecified; Z3A.22 22 weeks gestation of pregnancy
CPT/HCPCS: 36415; 76770; 76805; 81001; 85025; 87086; 90686; 96361; 96365; 96375; 96376; G0008; G0378; J2405; J7120; 90471

== ENCOUNTER 2017-05-03 14:03 | Outpatient (CLI) | payer MEDICAID ==
[2017-05-03 15:04] VITALS: BP 111/60
[2017-05-03] MEDS ORDERED: LACTATED RINGERS 500 ML IV ONE (15:04)
[2017-05-03 16:45] LABS: Bacteria,Urine 1+ /HPF (Negative); Bilirubin,Urine NEG (Negative); Blood,Urine NEG (Negative); Color,Urine Yellow (Yellow); Mucus,Urine FEW /HPF; Protein,Urine <15 mg/dL mg/dL (Negative); Urobilinogen,Urine < 2.0 mg/dL (<2.0)
== END 2017-05-03 17:15 | disposition home or self-care (01) ==
LOC: TRG 14:03
PROVIDERS: ATTEND Obstetrics & Gynecology
DX: O62.9 Abnormality of forces of labor, unspecified (principal); O26.892 Other specified pregnancy related conditions, second trimester; R10.2 Pelvic and perineal pain; Z3A.27 27 weeks gestation of pregnancy
CPT/HCPCS: 59025; 81001

== ENCOUNTER 2017-06-30 12:07 | Observation (INO) | payer MEDICAID ==
[2017-06-30] MEDS ORDERED: LACTATED RINGERS 500 ML IV ONE (12:58)
[2017-06-30 15:00] LABS: Bilirubin,Urine NEG (Negative); Blood,Urine NEG (Negative); Color,Urine Yellow (Yellow); Mucus,Urine 3+ /HPF
[2017-06-30] MEDS ORDERED: ZOFRAN IV PRN (15:40)
[2017-06-30] MEDS ORDERED: COLACE PO PRN (15:40)
[2017-06-30] MEDS ORDERED: BENADRYL PO PRN (15:40)
[2017-06-30] MEDS ORDERED: SUDAFED PO PRN (15:40)
[2017-06-30] MEDS ORDERED: TYLENOL PO PRN (15:40)
[2017-06-30] MEDS ORDERED: AMBIEN PO PRN (15:40)
[2017-06-30] MEDS ORDERED: GUAIFENESIN DM SYRUP PO PRN (15:40)
[2017-06-30] MEDS ORDERED: DEEP SEA NS PRN (15:40)
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
[2017-06-30 16:40] LABS: Basophils % (Auto) 0.4 % (0.0-1.8); Eosinophils % (Auto) 0.4 % (0.0-4.3); Hematocrit 25.4 % (30.3-42.9); Hemoglobin 8.7 gm/dl (10.1-14.3); Lymphocytes # (Auto) 1.8 K/mm3 (1.2-5.4); Lymphocytes % (Auto) 27.7 % (13.4-35.0); Mean Corpuscular HGB Conc 34 % (30-34); Mean Corpuscular Hemoglobin 29 pg (28-32); Mean Corpuscular Volume 84 fl (79-97); Monocytes # (Auto) 0.6 K/mm3 (0.0-0.8); Monocytes % (Auto) 8.4 % (0.0-7.3); Platelet Count 163 K/mm3 (140-440); Red Blood Count 3.03 M/mm3 (3.65-5.03); Red Cell Distribution Width 13.9 % (13.2-15.2)
--- NOTE | 2017-06-30 17:10 | Event Note ---
Date: 06/30/17 BPP 8/10 with 2 off for breathing. Pt does report movement since being admitted. Will still hydrate and repeat BPP in the am. She shows no signs of labor and has a CAT I tracing.
[2017-06-30] MEDS: LACTATED RINGERS 1,000 ML IV SCH (18:40)
[2017-06-30 19:40] LABS: Alanine Aminotransferase 9 units/L (7-56); Uric Acid 3.7 mg/dL (3.5-7.6)
[2017-07-01] MEDS: LACTATED RINGERS 1,000 ML IV SCH (04:17)
--- NOTE | 2017-07-01 07:29 | Ultrasound Report ---
ULTRASOUND BIOPHYSICAL PROFILE: History: well being Technique: Transabdominal ultrasound with Doppler interrogation. 0 - breathing movements 2 - movements 2 - posture and tone 2 - Qualitative amniotic fluid volume 6 - TOTAL SCORE OF POSSIBLE 8 Heart Rate (bpm) 160
--- NOTE | 2017-07-01 07:31 | Ultrasound Report ---
OB ULTRASOUND FOLLOWUP History decreased movement. Technique: Transabdominal ultrasound with Doppler interrogation. Comparison: 03/28/17. FINDINGS: Gestation: Single Position: Cephalic Amniotic Fluid: Normal NELSON = 12.5 cm Heart Rate: 154 BPM BPD: 8.8 cm = 35 w 5 d HC: 32.3 cm = 36 w 3 d AC: 30.7 cm = 34 w 4 d FL: 6.9 cm = 35 w 4 d HC/AC Ratio: 1.05 Cephalic Index: 79.9 Estimated Weight: 2615 grams Clinical age = 35 w 6 d EDC: 07/29/17 US Gest. Age = 35 w 4 d EDC: 07/31/17 IMPRESSION: Viable, single intrauterine as described.
[2017-07-01 08:08] VITALS: BP 122/80
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
--- NOTE | 2017-07-01 09:33 | Ultrasound Report ---
ULTRASOUND BIOPHYSICAL PROFILE: History: Decreased movement Technique: Transabdominal ultrasound with Doppler interrogation. 2 - breathing movements 2 - movements 2 - posture and tone 2 - Qualitative amniotic fluid volume 8 - TOTAL SCORE OF POSSIBLE 8 Heart Rate (bpm) 130
[2017-07-01] MEDS ORDERED: PRENATAL VITAMIN PO SCH (10:00)
== END 2017-07-01 11:20 | disposition home or self-care (01) ==
LOC: TRG 12:07 → LD 12:26 → TRG 20:27 → LD 20:28
PROVIDERS: ADMIT Obstetrics & Gynecology; ATTEND Obstetrics & Gynecology
DX: O26.893 Other specified pregnancy related conditions, third trimester (principal); O36.8130 Decreased fetal movements, third trimester, not applicable or unspecified; R10.2 Pelvic and perineal pain; Z3A.35 35 weeks gestation of pregnancy
CPT/HCPCS: 36415; 76816; 76819; 81001; 82565; 83615; 84450; 84460; 84550; 85025; 86850; 86900; 86901; 96361; 96374; G0378; J2405; J7120

== ENCOUNTER 2017-07-14 10:19 | Outpatient (CLI) | payer MEDICAID ==
[2017-07-14 10:42] VITALS: BP 129/88
[2017-07-14] MEDS ORDERED: VISTARIL PO NR (11:16)
== END 2017-07-14 11:54 | disposition home or self-care (01) ==
LOC: TRG 10:19
PROVIDERS: ATTEND Obstetrics & Gynecology
DX: O47.1 False labor at or after 37 completed weeks of gestation (principal); Z3A.38 38 weeks gestation of pregnancy
CPT/HCPCS: 59025; Q0177

== ENCOUNTER 2017-07-19 03:41 | Outpatient (CLI) | payer MEDICAID ==
[2017-07-19 04:19] VITALS: BP 129/85
[2017-07-19] MEDS ORDERED: PEPCID IV ONE (05:14)
[2017-07-19] MEDS ORDERED: BICITRA ONE (05:14)
[2017-07-19] MEDS ORDERED: REGLAN ONE (05:14)
[2017-07-19] MEDS ORDERED: PITOCin/NS 20 UNIT/1000ML DRIP 20,000 MILLIUNITS/1,000 ML BAG IV ONE (05:15)
[2017-07-19] MEDS ORDERED: DIFLUCAN PO STA (05:50)
[2017-07-19] MEDS ORDERED: TYLENOL PO STA (05:50)
[2017-07-19 06:14] LABS: Bilirubin,Urine NEG (Negative); Blood,Urine NEG (Negative); Color,Urine Yellow (Yellow); Mucus,Urine 3+ /HPF; Urobilinogen,Urine < 2.0 mg/dL (<2.0)
== END 2017-07-19 06:34 | disposition home or self-care (01) ==
LOC: TRG 03:41
PROVIDERS: ATTEND Obstetrics & Gynecology
DX: O47.1 False labor at or after 37 completed weeks of gestation (principal); Z3A.38 38 weeks gestation of pregnancy
CPT/HCPCS: 59025; 81001; J2590; J2765

== ENCOUNTER 2017-07-31 18:31 | Outpatient (CLI) | payer MEDICAID ==
[2017-07-31 19:07] VITALS: BP 118/63
== END 2017-07-31 20:00 | disposition home or self-care (01) ==
LOC: TRG 18:31
PROVIDERS: ATTEND Obstetrics & Gynecology
DX: O47.1 False labor at or after 37 completed weeks of gestation (principal); Z3A.40 40 weeks gestation of pregnancy
CPT/HCPCS: 59025

== ENCOUNTER 2017-11-04 17:57 | Emergency (ER) | payer MEDICAID ==
[2017-11-04] MEDS ORDERED: NACL 0.9% 1000 ML 1,000 ML IV ONE ×3 (19:04→22:20)
[2017-11-04 19:19] LABS: Basophils # (Auto) 0.1 K/mm3 (0.0-0.1); Basophils % (Auto) 0.8 % (0.0-1.8); Eosinophils # (Auto) 0.1 K/mm3 (0.0-0.4); Eosinophils % (Auto) 1.1 % (0.0-4.3); Hematocrit 34.2 % (30.3-42.9); Hemoglobin 10.6 gm/dl (10.1-14.3); Lymphocytes # (Auto) 3.3 K/mm3 (1.2-5.4); Lymphocytes % (Auto) 47.7 % (13.4-35.0); Mean Corpuscular HGB Conc 31 % (30-34); Mean Corpuscular Volume 75 fl (79-97); Monocytes # (Auto) 0.6 K/mm3 (0.0-0.8); Monocytes % (Auto) 8.4 % (0.0-7.3); Platelet Count 192 K/mm3 (140-440); Red Blood Count 4.55 M/mm3 (3.65-5.03)
[2017-11-04 19:23] LABS: Mean Corpuscular Hemoglobin 23 pg (28-32)
[2017-11-04 19:41] LABS: Hemolysis Index 5
--- NOTE | 2017-11-04 19:41 | Emergency Department Report ---
ED Abdominal Pain HPI - General Chief Complaint: Abdominal Pain Stated Complaint: ABDOMINAL PAIN Time Seen by Provider: 11/04/17 19:41 Source: patient, police, EMS Mode of arrival: Stretcher Limitations: No Limitations - History of Present Illness Initial Comments: Patient complains of right lower quadrant abdominal pain which started today. She denies any diarrhea, nausea or vomiting. Patient also denies fever/chills. She was seen in [facility] today by a medical provider who recommended she go to the emergency room to be evaluated for appendicitis. MD Complaint: abdominal pain -: Sudden Location: RLQ Radiation: none Migration to: no migration Severity: severe Severity scale (0 -10): 7 Quality: sharp Consistency: constant Improves With: nothing Worsens With: nothing Associated Symptoms: denies other symptoms - Related Data LMP (females 10-50): unknown Home Medications Medication Instructions Recorded Confirmed Last Taken Vit 90/Iron Fum/Folic 1 tab PO DAILY 03/30/14 08/06/17 08/06/17 10:00 [ Formula] Previous Rx's Medication Instructions Recorded Last Taken Type Ferrous Sulfate [Feosol 325 MG tab] 325 mg PO QDAY #30 tablet 12/22/15 08/06/17 10:00 Rx Vit No.130/Iron/Folic 1 each PO QDAY #30 tablet 12/26/16 08/06/17 10: 00 Rx [ Tablet] Ferrous Sulfate [Feosol 325 MG tab] 325 mg PO BID #90 tablet 08/07/17 Unknown Rx Ibuprofen [Motrin 800 MG tab] 800 mg PO Q8HR PRN #30 tablet 08/07/17 Unknown Rx Docusate Sodium [Colace] 100 mg PO BID PRN #30 capsule 08/08/17 Unknown Rx Ciprofloxacin HCl [Cipro] 500 mg PO BID #28 tablet 11/05/17 Unknown Rx Doxycycline [Vibramycin CAP] 100 mg PO Q12HR #28 capsule 11/05/17 Unknown Rx Ibuprofen [Motrin] 800 mg PO Q8HR PRN #30 tablet 11/05/17 Unknown Rx Ondansetron [Zofran ODT TAB] 8 mg PO Q8HR PRN #20 tab.rapdis 11/05/17 Unknown Rx metroNIDAZOLE [Flagyl] 500 mg PO Q12HR #28 tab 11/05/17 Unknown Rx Allergies Allergy/AdvReac Type Severity Reaction Status Date / Time amoxicillin Allergy Hives Verified 02/21/17 19:24 haloperidol [From Haldol] Allergy Hives Verified 02/02/13 12:52 haloperidol lactate Allergy Hives Verified 02/02/13 12:52 [From Haldol] Penicillins Allergy Hives Verified 02/02/13 12:52 ED Review of Systems ROS: Stated complaint: ABDOMINAL PAIN Other details as noted in HPI Comment: All other systems reviewed and negative Constitutional: denies: chills, fever Eyes: denies: eye pain ENT: denies: ear pain Respiratory: denies: cough, orthopnea, shortness of breath Cardiovascular: denies: chest pain, palpitations, dyspnea on exertion, syncope Endocrine: no symptoms reported Gastrointestinal: abdominal pain. denies: nausea, vomiting, diarrhea, constipation Genitourinary: denies: urgency, dysuria, frequency Musculoskeletal: denies: back pain, joint swelling Skin: denies: rash, lesions Neurological: denies: headache, weakness, numbness Psychiatric: denies: anxiety, depression Hematological/Lymphatic: denies: easy bleeding, easy bruising ED Past Medical Hx - Past Medical History Hx Hypertension: No Hx Congestive Heart Failure: No Hx Diabetes: No Hx Deep Vein Thrombosis: No Hx Renal Disease: No Hx Sickle Cell Disease: No Hx Seizures: No Hx Asthma: No Hx COPD: No Hx HIV: No Additional medical history: prenatel vit - Surgical History Additional Surgical History: d&c - Social History Smoking Status: Current Every Day Smoker Substance Use Type: Alcohol - Medications Home Medications: Home Medications Medication Instructions Recorded Confirmed Last Taken Type Vit 90/Iron Fum/Folic 1 tab PO DAILY 03/30/14 08/06/17 08/06/17 10:00 History [ Formula] Ferrous Sulfate [Feosol 325 MG tab] 325 mg PO QDAY #30 tablet 12/22/15 08/06/17 08/06/17 10:00 Rx Vit No.130/Iron/Folic 1 each PO QDAY #30 tablet 12/26/16 08/06/1708/06 10:00 Rx [ Tablet] Ferrous Sulfate [Feosol 325 MG tab] 325 mg PO BID #90 tablet 08/07/17 Unknown Rx Ibuprofen [Motrin 800 MG tab] 800 mg PO Q8HR PRN #30 tablet 08/07/17 Unknown Rx Docusate Sodium [Colace] 100 mg PO BID PRN #30 capsule 08/08/17 Unknown Rx Ciprofloxacin HCl [Cipro] 500 mg PO BID #28 tablet 11/05/17 Unknown Rx Doxycycline [Vibramycin CAP] 100 mg PO Q12HR #28 capsule 11/05/17 Unknown Rx Ibuprofen [Motrin] 800 mg PO Q8HR PRN #30 tablet 11/05/17 Unknown Rx Ondansetron [Zofran ODT TAB] 8 mg PO Q8HR PRN #20 tab.rapdis 11/05/17 Unknown Rx metroNIDAZOLE [Flagyl] 500 mg PO Q12HR #28 tab 11/05/17 Unknown Rx ED Physical Exam - General Limitations: No Limitations General appearance: alert, in no apparent distress - Head Head exam: Present: atraumatic, normocephalic, normal inspection - Eye Eye exam: Present: normal appearance, PERRL, EOMI. Absent: scleral icterus Pupils: Present: normal accommodation - ENT ENT exam: Present: normal exam, normal orophraynx, mucous membranes moist - Neck Neck exam: Present: normal inspection, full ROM. Absent: tenderness - Respiratory Respiratory exam: Present: normal lung sounds bilaterally. Absent: respiratory distress, wheezes, rales, rhonchi, stridor - Cardiovascular Cardiovascular Exam: Present: regular rate, normal rhythm, normal heart sounds - GI/Abdominal GI/Abdominal exam: Present: soft, tenderness (RLQ), guarding, rebound, normal bowel sounds. Absent: distended, rigid - Rectal Rectal exam: Present: deferred - External exam: Present: normal external exam. Absent: lacerations, ecchymosis, bleeding Speculum exam: Present: vaginal discharge, cervical discharge, other (Yellowish greenish foul smelling vaginal discharge.). Absent: vaginal bleeding Bi-manual exam: Present: cervical motion tendernes, adnexal tenderness (Right adnexal tenderness), uterine tenderness, other ([place]per[place] was Ms. Elis RN.). Absent: adnexal mass - Extremities Exam Extremities exam: Present: normal inspection, full ROM, normal capillary refill. Absent: tenderness - Back Exam Back exam: Present: normal inspection, full ROM. Absent: tenderness - Neurological Exam Neurological exam: Present: alert, oriented X3, CN II-XII intact - Psychiatric Psychiatric exam: Present: normal affect, normal mood - Skin Skin exam: Present: warm, dry, intact, normal color. Absent: rash ED Course Vital Signs 11/04/17 11/04/17 19:00 19:15 Temperature 98.7 F 98.4 F Pulse Rate 88 85 Respiratory 16 16 Rate Blood Pressure 133/94 Blood Pressure 126/95 [Right] O2 Sat by Pulse 98 100 Oximetry - Reevaluation(s) Reevaluation #1: 11/05/17 00:55 Patient is feeling much better after receiving treatment in the ED. ED Medical Decision Making - Lab Data Result diagrams: 11/04/17 19:10 11/04/17 19:10 Lab Results 11/04/17 11/04/17 11/04/17 Range/Units 19:10 19:10 19:10 WBC 6.9 (4.5-11.0) K/mm3 RBC 4.55 (3.65-5.03) M/mm3 Hgb 10.6 (10.1-14.3) gm/dl Hct 34.2 (30.3-42.9) % MCV 75 L (79-97) fl MCH 23 L (28-32) pg MCHC 31 (30-34) % RDW 24.0 H (13.2-15.2) % Plt Count 192 (140-440) K/mm3 Lymph % (Auto) 47.7 H (13.4-35.0) % Rock % (Auto) 8.4 H (0.0-7.3) % Eos % (Auto) 1.1 (0.0-4.3) % Baso % (Auto) 0.8 (0.0-1.8) % Lymph # 3.3 (1.2-5.4) K/mm3 Rock # 0.6 (0.0-0.8) K/mm3 Eos # 0.1 (0.0-0.4) K/mm3 Baso # 0.1 (0.0-0.1) K/mm3 Seg Neutrophils % 42.0 (40.0-70.0) % Seg Neutrophils # 2.9 (1.8-7.7) K/mm3 Sodium 139 (137-145) mmol/L Potassium 3.9 (3.6-5.0) mmol/L Chloride 106.7 (98-107) mmol/L Carbon Dioxide 24 (22-30) mmol/L Anion Gap 12 mmol/L BUN 7 (7-17) mg/dL Creatinine 0.5 L (0.7-1.2) mg/dL Estimated GFR > 60 ml/min BUN/Creatinine Ratio 14 % Glucose 90 (65-100) mg/dL Calcium 8.9 (8.4-10.2) mg/dL Total Bilirubin < 0.20 (0.1-1.2) mg/dL AST 32 (5-40) units/L ALT 24 (7-56) units/L Alkaline Phosphatase 52 (35-129) units/L Total Protein 7.0 (6.3-8.2) g/dL Albumin 4.0 (3.9-5) g/dL Albumin/Globulin Ratio 1.3 % HCG, Qual Negative (Negative) Urine Color (Yellow) Urine Turbidity (Clear) Urine pH (5.0-7.0) Ur Specific [place] (1.003-1.030) Urine Protein (Negative) mg/dL Urine Glucose (UA) (Negative) mg/dL Urine Ketones (Negative) mg/dL Urine Blood (Negative) Urine Nitrite (Negative) Urine Bilirubin (Negative) Urine Urobilinogen (<2.0) mg/dL Ur Leukocyte Esterase (Negative) Urine WBC (Auto) (0.0-6.0) /HPF Urine RBC (Auto) (0.0-6.0) /HPF U Epithel Cells (Auto) (0-13.0) /HPF // Range/Units 20:10 WBC (4.5-11.0) K/mm3 RBC (3.65-5.03) M/mm3 Hgb (10.1-14.3) gm/dl Hct (30.3-42.9) % MCV (79-97) fl MCH (28-32) pg MCHC (30-34) % RDW (13.2-15.2) % Plt Count (140-440) K/mm3 Lymph % (Auto) (13.4-35.0) % Rock % (Auto) (0.0-7.3) % Eos % (Auto) (0.0-4.3) % Baso % (Auto) (0.0-1.8) % Lymph # (1.2-5.4) K/mm3 Rock # (0.0-0.8) K/mm3 Eos # (0.0-0.4) K/mm3 Baso # (0.0-0.1) K/mm3 Seg Neutrophils % (40.0-70.0) % Seg Neutrophils # (1.8-7.7) K/mm3 Sodium (137-145) mmol/L Potassium (3.6-5.0) mmol/L Chloride (98-107) mmol/L Carbon Dioxide (22-30) mmol/L Anion Gap mmol/L BUN (7-17) mg/dL Creatinine (0.7-1.2) mg/dL Estimated GFR ml/min BUN/Creatinine Ratio % Glucose (65-100) mg/dL Calcium (8.4-10.2) mg/dL Total Bilirubin (0.1-1.2) mg/dL AST (5-40) units/L ALT (7-56) units/L Alkaline Phosphatase (35-129) units/L Total Protein (6.3-8.2) g/dL Albumin (3.9-5) g/dL Albumin/Globulin Ratio % HCG, Qual (Negative) Urine Color Straw (Yellow) Urine Turbidity Clear (Clear) Urine pH 6.0 (5.0-7.0) Ur Specific [place] 1.010 (1.003-1.030) Urine Protein <15 mg/dl (Negative) mg/dL Urine Glucose (UA) Neg (Negative) mg/dL Urine Ketones Neg (Negative) mg/dL Urine Blood Neg (Negative) Urine Nitrite Neg (Negative) Urine Bilirubin Neg (Negative) Urine Urobilinogen < 2.0 (<2.0) mg/dL Ur Leukocyte Esterase Neg (Negative) Urine WBC (Auto) 2.0 (0.0-6.0) /HPF Urine RBC (Auto) 1.0 (0.0-6.0) /HPF U Epithel Cells (Auto) 2.0 (0-13.0) /HPF - Radiology Data Radiology results: report reviewed, image reviewed CT of the abdomen and pelvis and pelvic ultrasound were negative. Please see the radiology report for details. - Medical Decision Making Patient presented with lower abdominal pain physical exam is consistent with pelvic inflammatory disease. Labs and imaging study doesn't show any regan. She was given antibiotics in the emergency room and she will be discharged with more antibiotics. Patient was advised that her GC chlamydia will be resulted in a couple of days and if she has gonorrhea and/or chlamydia, then sexual partner will need to be treated. Critical care attestation.: If time is entered above; I have spent that time in minutes in the direct care of this critically ill patient, excluding procedure time. ED Disposition Clinical Impression: PID (acute pelvic inflammatory disease) Abdominal pain Qualifiers: Abdominal location: right lower quadrant Qualified Code(s): R10.31 - Right lower quadrant pain Disposition: TO HOME OR SELFCARE Is pt being admited?: No Does the pt Need Aspirin: No Condition: Stable Instructions: Abdominal Pain (ED), Pelvic Inflammatory Disease (ED) Additional Instructions: Please follow up with Dr. Reilly on Wednesday morning. Return to the ED if your condition worsens. Prescriptions: Ciprofloxacin HCl [Cipro] 500 mg PO BID #28 tablet Doxycycline [Vibramycin CAP] 100 mg PO Q12HR #28 capsule Ibuprofen [Motrin] 800 mg PO Q8HR PRN #30 tablet PRN Reason: Pain , Severe (7-10) metroNIDAZOLE [Flagyl] 500 mg PO Q12HR #28 tab Ondansetron [Zofran ODT TAB] 8 mg PO Q8HR PRN #20 tab.rapdis PRN Reason: Nausea And Vomiting Referrals: PRIMARY CARE, [Primary Care Provider] - 3-5 Days FINN REILLY MD [Staff Physician] - 3-5 Days Time of Disposition: 00:58
[2017-11-04] MEDS ORDERED: ZOFRAN IV ONE ×2 (20:07→23:16)
[2017-11-04] MEDS ORDERED: MORPHINE IV ONE (20:07)
[2017-11-04 20:10] LABS: Blood Urea Nitrogen 7 mg/dL (7-17)
[2017-11-04 20:11] LABS: Alanine Aminotransferase 24 units/L (7-56); BUN/Creatinine Ratio 14; Calcium 8.9 mg/dL (8.4-10.2)
[2017-11-04 20:25] LABS: Bilirubin,Urine NEG (Negative); Blood,Urine NEG (Negative); Color,Urine Straw (Yellow); Protein,Urine <15 mg/dL mg/dL (Negative); Urobilinogen,Urine < 2.0 mg/dL (<2.0)
[2017-11-04] MEDS ORDERED: NACL 0.9% 250 ML ONE (21:23)
--- NOTE | 2017-11-04 21:35 | Cat Scan Report ---
FINAL REPORT PROCEDURE: CT ABDOMEN PELVIS W CON TECHNIQUE: Computerized axial tomography of the abdomen and pelvis was performed after the IV injection of iodinated nonionic contrast. HISTORY: RLQ abdominal pain COMPARISON: No prior studies are available for comparison. FINDINGS: Liver, spleen, pancreas and adrenal glands are within normal limits. Bilateral kidneys demonstrate uniform enhancement without hydronephrosis. Urinary bladder is minimally filled with normal outlines. Aorta is of normal caliber. Minimal degree free fluid is noted in the pelvic cavity within physiologic limits. Gallbladder is unremarkable. Small bowel loops are within normal limits. Moderate degree residual stool is noted appendix is normal. 2.8 centimeters cystic lesion is noted in the right adnexal region. 2.4 centimeters cystic lesion is noted in the left adnexal region. IMPRESSION: No acute intra-abdominal or pelvic pathology. Small cystic lesions in bilateral adnexal regions most likely represent follicular versus cystic changes of bilateral ovaries.
[2017-11-04] MEDS ORDERED: VIBRAMYCIN PO ONE (22:05)
[2017-11-04] MEDS ORDERED: LEVAQUIN 750MG/150ML 750 MG/150 ML BAG IV ONE (22:05)
--- NOTE | 2017-11-04 22:22 | Ultrasound Report ---
FINAL REPORT PROCEDURE: US TRANSVAGINAL TECHNIQUE: Real-time transvaginal sonography in multiple planes of the pelvis was performed with image documentation. This examination was performed without Doppler. Vascular abnormalities, including ovarian torsion, will not be detectable without Doppler evaluation. CPT 89392 HISTORY: RLQ abdominal pain COMPARISON: No prior studies are available for comparison. FINDINGS: UTERUS Size: 10.5 x 6.2 x 6.6 cm. Endometrial thickness: 3 mm. Orientation: anteverted. Cervix: Normal. Fibroids/masses: None. RIGHT Ovary: 3.3 x 2.6 x 3.0 cm. Appearance: 2.6 centimeters cystic lesion is noted. LEFT Ovary: 3.2 x 2.0 x 2.2 cm. Appearance: Normal 2.9 centimeters cystic lesion is noted. Pelvic fluid: Minimal free fluid is noted in the pelvic cavity which is within physiologic limits. Other: None. IMPRESSION: Small cystic lesions in bilateral ovaries measuring 2.6 centimeters on the right and 2.9 centimeters on the left most likely represent follicular changes. Otherwise unremarkable study
--- NOTE | 2017-11-04 22:22 | Ultrasound Report ---
FINAL REPORT PROCEDURE: US PELVIC COMPLETE TECHNIQUE: Real-time transabdominal sonography in multiple planes of pelvis was performed with image documentation. This examination was performed without Doppler. Vascular abnormalities, including ovarian torsion, will not be detectable without Doppler evaluation. CPT 78424 HISTORY: RLQ abdominal pain COMPARISON: No prior studies are available for comparison. FINDINGS: UTERUS Size: 10.5 x 6.2 x 6.6 cm. Endometrial thickness: 3 mm. Orientation: anteverted. Cervix: Normal. Fibroids/masses: None. RIGHT Ovary: 3.3 x 2.6 x 3.0 cm. Appearance: 2.6 centimeters cystic lesion is noted. LEFT Ovary: 3.2 x 2.0 x 2.2 cm. Appearance: Normal 2.9 centimeters cystic lesion is noted. Pelvic fluid: Minimal free fluid is noted in the pelvic cavity which is within physiologic limits. Other: None. IMPRESSION: Small cystic lesions in bilateral ovaries measuring 2.6 centimeters on the right and 2.9 centimeters on the left most likely represent follicular changes. Otherwise unremarkable study
[2017-11-04] MEDS ORDERED: FLAGYL 500 MG/100 ML 500 MG/100 ML BAG IV SCH (23:00)
[2017-11-04] MEDS ORDERED: ZOFRAN ONE (23:09)
[2017-11-05 02:36] VITALS: BP 118/74
== END 2017-11-05 02:00 | disposition home or self-care (01) ==
LOC: ED 17:57
DX: N73.9 Female pelvic inflammatory disease, unspecified (principal); F17.200 Nicotine dependence, unspecified, uncomplicated; Z88.1 Allergy status to other antibiotic agents; Z88.0 Allergy status to penicillin; Z88.8 Allergy status to other drugs, medicaments and biological substances
CPT/HCPCS: 36415; 74177; 76830; 76856; 80053; 81001; 84703; 85025; 87210; 87591; 96365; 96368; 96375; 96376; 99285; J1956; J2270; J2405; J7030; Q9967; 96361

== ENCOUNTER 2018-09-23 12:26 | Outpatient (CLI) | payer MEDICAID ==
[2018-09-23 13:22] LABS: Bilirubin,Urine NEG (Negative); Blood,Urine NEG (Negative); Color,Urine Yellow (Yellow); Mucus,Urine 3+ /HPF; Protein,Urine <15 mg/dL mg/dL (Negative)
[2018-09-23] MEDS ORDERED: LACTATED RINGERS 1,000 ML IV SCH (14:00)
[2018-09-23 14:26] VITALS: BP 110/67
--- NOTE | 2018-09-23 17:53 | Ultrasound Report ---
Complete transabdominal OB pelvic ultrasound INDICATION / CLINICAL INFORMATION: LABOR EVAL, R/O ABRUPTION. COMPARISON: None available. FINDINGS: There is a single intrauterine with an estimated sonographic gestational age of 24 weeks 6 days and in the DCE of 01/07/2019. Clinical dates are 25 weeks 3 days. The heart rate is 157 bp m. presentation is cephalic. The placenta is located in the posterior fundus, is grade 1 and is free of the os. There is no evidence of abruption. Amniotic fluid volume is normal. The NELSON is 9.6 c m The uterine cervix measures 4.1 cm in length and the internal os is closed. The ovaries are not seen. The intracranial and spinal anatomy are normal. A 4 chambered heart view is seen. The st omach, diaphragm, kidneys and urinary bladder are normal in appearance. There is a three-vessel umbil ical cord which inserts normally on the abdomen. No anomalies are seen. IMPRESSION: Single viable 24 week 6 day intrauterine without complication. Signer Name: Lauri Rajput MD Signed: 09/23/2018 5:49 PM Workstation Name: [id number]
== END 2018-09-23 18:29 | disposition home or self-care (01) ==
LOC: TRG 12:26
PROVIDERS: ATTEND Obstetrics & Gynecology
DX: O26.892 Other specified pregnancy related conditions, second trimester (principal); R10.30 Lower abdominal pain, unspecified; O47.02 False labor before 37 completed weeks of gestation, second trimester; Z3A.26 26 weeks gestation of pregnancy
CPT/HCPCS: 59025; 76805; 81001; 96360; 96361; J7120

== ENCOUNTER 2018-12-20 00:04 | Outpatient (CLI) | payer MEDICAID ==
[2018-12-20 00:23] VITALS: BP 130/80
[2018-12-20] MEDS ORDERED: LACTATED RINGERS 1,000 ML ONE (01:08)
[2018-12-20] MEDS ORDERED: hydrOXYzine PAMOATE 25 MG CAP PO ONE (02:26)
== END 2018-12-20 03:13 | disposition home or self-care (01) ==
LOC: TRG 00:04
PROVIDERS: ATTEND Obstetrics & Gynecology
DX: O62.9 Abnormality of forces of labor, unspecified (principal); O13.3 Gestational [pregnancy-induced] hypertension without significant proteinuria, third trimester; Z3A.38 38 weeks gestation of pregnancy
CPT/HCPCS: 59025; 96360; J7120; Q0177

== ENCOUNTER 2018-12-28 23:13 | Outpatient (CLI) | payer MEDICAID ==
[2018-12-28 23:43] VITALS: BP 123/75
== END 2018-12-29 00:50 | disposition home or self-care (01) ==
LOC: TRG 23:13
PROVIDERS: ATTEND Obstetrics & Gynecology
DX: O47.1 False labor at or after 37 completed weeks of gestation (principal); Z3A.39 39 weeks gestation of pregnancy
CPT/HCPCS: 59025; Q0177

== ENCOUNTER 2019-01-01 17:14 | Inpatient (IN) | payer MEDICAID ==
--- NOTE | 2019-01-01 20:11 | Ultrasound Report ---
ULTRASOUND OBSTETRIC INDICATION / CLINICAL INFORMATION: Decreased movement. Clinical Gestational Age (GA): 40 weeks 2 days TECHNIQUE: Transabdominal. COMPARISON: First trimester ultrasound 09/23/2018 FINDINGS: There is a single intrauterine . Heart Rate: 159 beats per minute. Position: cephalic. Amniotic Fluid Volume: normal Amniotic Fluid Index (NELSON) in cm (if calculated): 10.0. Biophysical profile score 8/8. IMPRESSION: 1. Single, living intrauterine with NELSON 10.0 cm, BPP score 8/8, and heart rate 159 BPM. Signer Name: Juan Verma MD Signed: 01/01/2019 8:06 PM Workstation Name: [id number]
[2019-01-01 20:31] LABS: Hematocrit 27.5 % (30.3-42.9); Hemoglobin 8.9 gm/dl (10.1-14.3); Mean Corpuscular HGB Conc 33 % (30-34); Mean Corpuscular Volume 80 fl (79-97); Platelet Count 216 K/mm3 (140-440); Red Blood Count 3.44 M/mm3 (3.65-5.03)
[2019-01-01 20:44] LABS: Alanine Aminotransferase 6 units/L (7-56); Albumin 3.3 g/dL (3.9-5); BUN/Creatinine Ratio 15; Blood Urea Nitrogen 6 mg/dL (7-17); Calcium 8.6 mg/dL (8.4-10.2); Hemolysis Index 10
[2019-01-01] MEDS ORDERED: LIDOCAINE (2%) 20 MG/1 ML VIAL 20 ML MDV INFILTRATI ONE (21:22)
[2019-01-01] MEDS ORDERED: TERBUTALINE 1 MG/1 ML INJ SUB-Q PRN (21:22)
[2019-01-01] MEDS ORDERED: ePHEDrine SULFATE 50 MG/1 ML INJ IV PRN (21:22)
--- NOTE | 2019-01-01 21:41 | History and Physical Report ---
History of Present Illness Date of examination: 01/01/19 Date of admission: 01/01/2019 Chief complaint: Contractions and headache History of present illness: 28 year old presents to L&D with complaint of contractions. In triage, patient's BP was noted to be elevated. Patient denies visual disturbance but reports a headache. Pt. denies nausea or vomiting. No records available; was able to view records on computer. significant for the following: grand multipara, anemia (supplemented with iron), vitamin D deficiency (supplemented with vitamin D), UTI (treated), trichomonas (treated and HUGH negative), + RPR with negative FTABS, elevated 1 hour sugar test with negative 3 hour OGTT. labs are as follows: O+, antibody screen negative, rubella immune, hepatitis B surface antigen negative, HIV negative, RPR positive (1:1) with negative FTABS, panorama low risk, horizon negative, AFP negative, hemoglobin electrophoresis normal, gonorrhea negative, chlamydia negative, GBS negative, trichomonas positive/negative, 1 hour sugar test 140 (normal 3 hour OGTT), pap ASCUS. 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 denies: chlamydia, gonorrhea, hepatitis B (d), hepatitis C, herpes, HIV, syphilis Family/Genetic History: none Social history: single, lives with family, full code. denies: smoking, alcohol abuse, prescription drug abuse, IV drug use - Obstetrical History Expected Date of Delivery: 12/30/18 Actual Gestation: 40 Week(s) 3 Day(s) : 6 Para: 5 Hx # Term Pregnancies: 4 Number of Pregnancies: 1 Spontaneous Abortions: 0 Induced : 0 Number of Living Children: 4 Medications and Allergies Allergies Allergy/AdvReac Type Severity Reaction Status Date / Time amoxicillin Allergy Hives Verified 02/21/17 19:24 haloperidol [From Haldol] Allergy Hives Verified 02/02/13 12:52 haloperidol lactate Allergy Hives Verified 02/02/13 12:52 [From Haldol] Penicillins Allergy Hives Verified 02/02/13 12:52 Home Medications Medication Instructions Recorded Confirmed Last Taken Type Vit 90/Iron Fum/Folic 1 tab PO DAILY 03/30/14 12/28/1808/06/18 10:00 History [ Formula] Ferrous Sulfate [Feosol 325 MG tab] 325 mg PO QDAY #30 tablet 12/22/15 12/28/18 08/06/17 10:00 Rx Vit No.130/Iron/Folic 1 each PO QDAY #30 tablet 12/26/16 12/28/1812/28 08:00 Rx [ Tablet] Ferrous Sulfate [Feosol 325 MG tab] 325 mg PO BID #90 tablet 08/07/17 12/28/18 Unknown Rx Ibuprofen [Motrin 800 MG tab] 800 mg PO Q8HR PRN #30 tablet 08/07/17 12/28/18 Unknown Rx Docusate Sodium [Colace] 100 mg PO BID PRN #30 capsule 08/08/17 12/28/18 Unknown Rx Ciprofloxacin HCl [Cipro] 500 mg PO BID #28 tablet 11/05/17 12/28/18 Unknown Rx DOXYCYCLINE Hyclate [Vibramycin 100 mg PO Q12HR #28 capsule 11/05/17 12/28/18 Unknown Rx CAP] Ibuprofen [Motrin] 800 mg PO Q8HR PRN #30 tablet 11/05/17 12/28/18 Unknown Rx Ondansetron [Zofran ODT TAB] 8 mg PO Q8HR PRN #20 tab.rapdis 11/05/17 12/28/18 Unknown Rx metroNIDAZOLE [Flagyl] 500 mg PO Q12HR #28 tab 11/05/17 12/28/18 Unknown Rx Active Meds: Active Medications Ephedrine Sulfate (Ephedrine Sulfate) 10 mg IV Q2M PRN PRN Reason: Hypotension Fentanyl (Sublimaze) 100 mcg IV Q2H PRN PRN Reason: Labor Pain Oxytocin/Sodium Chloride (Pitocin/Ns 20 Unit/1000ml Drip) 20 units in 1,000 mls @ 125 mls/hr IV DIRECT EDEN Oxytocin/Sodium Chloride (Pitocin/Ns 30 Unit/500ml) 30 units in 500 mls @ 0 mls/hr IV TITR EDEN; Protocol Lactated Ringer's (Lactated Ringers) 1,000 mls @ 125 mls/hr IV DIRECT EDEN Lidocaine (Xylocaine 2%) 20 ml INFILTRATI ONCE ONE Stop: 01/01/19 21:23 Terbutaline Sulfate (Brethine) 0.25 mg SUB-Q ONCE PRN PRN Reason: Hyperstimulation/Hypertonicity Review of Systems All systems: negative (contractions and headache) - Vital Signs Vital signs: Vital Signs Pulse Pulse Ox 90 98 01/01/19 17:44 01/01/19 17:44 Temp Pulse Resp BP Pulse Ox 98.3 F 84 18 144/99 97 01/01/19 17:47 01/01/19 21:38 01/01/19 17:47 01/01/19 21:36 01/01/19 21:38 - Physical Exam Cardiovascular: Regular rate, Normal S1, Normal S2 Lungs: Positive: Clear to auscultation Abdomen: Positive: normal appearance, soft, normal bowel sounds. Negative: dist ention, tenderness, guarding, rigidity Genitourinary (Female): Positive: normal external genitalia, normal perenium. Negative: perineal/vulvar lesions Vagina: Positive: normal moisture Uterus: Positive: enlarged. Negative: tender Anus/Rectum: Positive: normal perianal skin Extremities: Positive: normal. Negative: tenderness, edema - Obstetrical FHR: category 1 Uterine Contraction Monitor Mode: External Cervical Dilatation: 2 Cervical Effacement Percentage: 60 station: -3 Uterine Contraction Pattern: Irregular Uterine Contraction Intensity: Mild Results Result Diagrams: 01/01/19 19:47 01/01/19 19:47 Abnormal lab results 01/01/19 01/01/19 01/01/19 Range/Units 19:47 19:47 19:47 RBC 3.44 L (3.65-5.03) M/mm3 Hgb 8.9 L (10.1-14.3) gm/dl Hct 27.5 L (30.3-42.9) % MCH 26 L (28-32) pg RDW 16.0 H (13.2-15.2) % Sodium 133 L (137-145) mmol/L Carbon Dioxide 20 L (22-30) mmol/L BUN 6 L (7-17) mg/dL Creatinine 0.4 L (0.7-1.2) mg/dL Uric Acid 3.0 L (3.5-7.6) mg/dL ALT 6 L (7-56) units/L Albumin 3.3 L (3.9-5) g/dL All other labs normal. Assessment and Plan A: at 40 weeks, 2 days gestation. Active labor. GBS positive. Elevated blood pressures, probable preeclampsia. P: Admit. Continuous EFM. GBS prophylaxis. Continue Labetalol po for HTN. Magnesium Sulfate IV. Augmentation of labor with Pitocin. Consulted with Dr. Ortiz re: this patient and he states he agrees with above plan of care. Discussed plan of care with patient.
[2019-01-01] MEDS ORDERED: MAGNESIUM SULFATE 4 GM/100 ML BAG IV ONE (21:58)
[2019-01-01] MEDS ORDERED: MAGNESIUM SULFATE 40GM/1000ML 40 GM/1,000 ML BAG IV SCH (22:00)
[2019-01-02] MEDS: LACTATED RINGERS 1,000 ML IV SCH ×2 (00:05→07:49)
[2019-01-02] MEDS: fentaNYL 100 MCG/2 ML INJ IV PRN ×2 (01:00→05:06)
[2019-01-02 01:53] LABS: Bacteria,Urine 2+ /HPF (Negative); Bilirubin,Urine NEG (Negative); Blood,Urine SM (Negative); Color,Urine Yellow (Yellow); Hyaline Casts,Urine 6 /LPF; Mucus,Urine 2+ /HPF; Protein,Urine <15 mg/dL mg/dL (Negative); Urobilinogen,Urine < 2.0 mg/dL (<2.0)
[2019-01-02 01:58] LABS: Amphetamine Screen,Urine PRESUMPTIVE NEGATIVE; Benzodiazepines Screen,Urine PRESUMPTIVE NEGATIVE; Cocaine Screen,Urine PRESUMPTIVE NEGATIVE; Methadone Screen,Urine PRESUMPTIVE NEGATIVE; Opiate Screen,Urine PRESUMPTIVE NEGATIVE
[2019-01-02] MEDS: OXYTOCIN DRIP 30 UNITS/500 ML BAG IV SCH ×6 (02:00→12:37)
[2019-01-02 02:18] LABS: Cannabinoid Screen,Urine PRESUMPTIVE NEGATIVE
--- NOTE | 2019-01-02 06:44 | Event Note ---
Date: 01/02/19 Patient requests epidural. SVE 4.5/90/-3. Category 1 heart rate tracing.
--- NOTE | 2019-01-02 07:51 | Anesthesia Consultation ---
Anesthesia Consult and Med Hx Date of service: 01/02/19 - Airway Anesthetic Teeth Evaluation: Good ROM Head & Neck: Adequate Mental/Hyoid Distance: Adequate Mallampati Class: Class II Intubation Access Assessment: Good - Pulmonary Exam CTA: Yes - Cardiac Exam Cardiac Exam: RRR - Pre-Operative Health Status ASA Pre-Surgery Classification: ASA2, Emergency Proposed Anesthetic Plan: Epidural, Spinal - Pulmonary Hx Asthma: No COPD: No Hx Pneumonia: No - Cardiovascular System Hx Hypertension: Yes - Central Nervous System Hx Seizures: No Hx Psychiatric Problems: No - Endocrine Hx Renal Disease: No Hx End Stage Renal Disease: No Hx Hypothyroidism: No Hx Hyperthyroidism: No - Hematic Hx Anemia: Yes Hx Sickle Cell Disease: No - Other Systems Hx Alcohol Use: No
[2019-01-02] MEDS ORDERED: NALOXONE 2 MG/2 ML INJ IV PRN (07:52)
[2019-01-02] MEDS ORDERED: ePHEDrine SULFATE 50 MG/1 ML INJ IV PRN (07:52)
[2019-01-02] MEDS ORDERED: fentaNYL-BUPIV 2 MCG/ML-0.125% 200 MCG/100 ML BAG EPIDURAL SCH (08:00)
--- NOTE | 2019-01-02 09:07 | Progress Note ---
Assessment and Plan - Patient Problems (1) 40 weeks gestation of Current Visit: Yes Status: Acute (2) Pre-eclampsia in third trimester Current Visit: Yes Status: Acute Plan to address problem: BPs stable (112/69) Continue magnesium sulfate therapy, routine mg levels per protocol, DTRs, strict I&Os Continue Labetalol 100mg PO BID (3) Encounter for induction of labor Current Visit: Yes Status: Acute Plan to address problem: AROM @ 9:00. Clear fluid. Large amount. Continue routine labor orders Continue oxytocin per protocol Anticipate vaginal delivery (4) Anemia affecting in third trimester Current Visit: Yes Status: Acute Plan to address problem: Start iron therapy Subjective - Subjective Date of service: 01/02/19 Principal diagnosis: IUP @ 40 weeks 3 days; IOL for pre-eclampsia Interval history: see H&P Patient reports: movement normal, other (Epidural anesthesia in place), no loss of fluid Objective - Vital Signs Vital Signs: Vital Signs - 12hr 01/01/19 01/01/19 01/01/19 21:08 21:13 21:18 Temperature Pulse Rate 84 91 H 90 Respiratory Rate Blood Pressure Blood Pressure [Left] O2 Sat by Pulse 98 98 97 Oximetry 01/01/19 01/01/19 01/01/19 21:21 21:23 21:28 Temperature Pulse Rate 85 87 84 Respiratory Rate Blood Pressure 141/100 Blood Pressure [Left] O2 Sat by Pulse 98 97 Oximetry 01/01/19 01/01/19 01/01/19 21:33 21:36 21:38 Temperature Pulse Rate 90 86 84 Respiratory Rate Blood Pressure 144/99 Blood Pressure [Left] O2 Sat by Pulse 98 97 Oximetry 01/01/19 01/01/19 01/01/19 21:43 21:48 21:51 Temperature Pulse Rate 87 83 80 Respiratory Rate Blood Pressure 139/94 Blood Pressure [Left] O2 Sat by Pulse 98 97 Oximetry 01/01/19 01/01/19 01/01/19 21:53 21:58 22:06 Temperature Pulse Rate 85 81 87 Respiratory Rate Blood Pressure 144/90 Blood Pressure [Left] O2 Sat by Pulse 97 97 Oximetry 01/01/19 01/01/19 01/01/19 22:24 22:36 23:03 Temperature 98.8 F Pulse Rate 91 H 88 79 Respiratory 18 Rate Blood Pressure 141/89 142/87 Blood Pressure 127/86 [Left] O2 Sat by Pulse Oximetry 01/02/19 01/02/19 01/02/19 02:12 02:13 02:17 Temperature Pulse Rate 88 84 84 Respiratory Rate Blood Pressure 134/86 Blood Pressure [Left] O2 Sat by Pulse 99 100 Oximetry 01/02/19 01/02/19 01/02/19 02:22 02:27 02:32 Temperature Pulse Rate 81 84 84 Respiratory Rate Blood Pressure 128/90 Blood Pressure [Left] O2 Sat by Pulse 99 99 99 Oximetry 01/02/19 01/02/19 01/02/19 02:37 02:42 02:43 Temperature Pulse Rate 76 83 82 Respiratory Rate Blood Pressure 131/71 Blood Pressure [Left] O2 Sat by Pulse 99 99 Oximetry 01/02/19 01/02/19 01/02/19 02:47 02:52 02:57 Temperature Pulse Rate 86 83 88 Respiratory Rate Blood Pressure 117/71 Blood Pressure [Left] O2 Sat by Pulse 98 99 99 Oximetry 01/02/19 01/02/19 01/02/19 03:02 03:07 03:12 Temperature Pulse Rate 83 84 84 Respiratory Rate Blood Pressure 108/60 Blood Pressure [Left] O2 Sat by Pulse 98 97 97 Oximetry 01/02/19 01/02/19 01/02/19 03:17 03:22 03:27 Temperature Pulse Rate 86 85 82 Respiratory Rate Blood Pressure Blood Pressure [Left] O2 Sat by Pulse 99 98 98 Oximetry 01/02/19 01/02/19 01/02/19 03:28 03:32 03:37 Temperature Pulse Rate 81 81 84 Respiratory Rate Blood Pressure 119/79 Blood Pressure [Left] O2 Sat by Pulse 99 98 Oximetry 01/02/19 01/02/19 01/02/19 03:42 03:47 03:52 Temperature Pulse Rate 79 81 78 Respiratory Rate Blood Pressure Blood Pressure [Left] O2 Sat by Pulse 97 96 96 Oximetry 01/02/19 01/02/19 01/02/19 03:57 04:02 04:07 Temperature Pulse Rate 76 78 80 Respiratory Rate Blood Pressure Blood Pressure [Left] O2 Sat by Pulse 96 96 96 Oximetry 01/02/19 01/02/19 01/02/19 04:12 04:17 04:22 Temperature Pulse Rate 81 80 86 Respiratory Rate Blood Pressure Blood Pressure [Left] O2 Sat by Pulse 97 98 98 Oximetry 01/02/19 01/02/19 01/02/19 04:27 04:29 04:32 Temperature Pulse Rate 77 77 75 Respiratory Rate Blood Pressure 109/69 Blood Pressure [Left] O2 Sat by Pulse 97 97 Oximetry 01/02/19 01/02/19 01/02/19 04:37 04:42 04:47 Temperature Pulse Rate 74 77 75 Respiratory Rate Blood Pressure Blood Pressure [Left] O2 Sat by Pulse 97 97 98 Oximetry 01/02/19 01/02/19 01/02/19 04:52 04:57 05:02 Temperature Pulse Rate 79 96 H 82 Respiratory Rate Blood Pressure Blood Pressure [Left] O2 Sat by Pulse 98 100 99 Oximetry 01/02/19 01/02/19 01/02/19 05:07 05:12 05:17 Temperature Pulse Rate 80 79 75 Respiratory Rate Blood Pressure Blood Pressure [Left] O2 Sat by Pulse 98 97 96 Oximetry 01/02/19 01/02/19 01/02/19 05:22 05:27 05:29 Temperature Pulse Rate 77 75 76 Respiratory Rate Blood Pressure 118/72 Blood Pressure [Left] O2 Sat by Pulse 96 96 Oximetry 01/02/19 01/02/19 01/02/19 05:32 05:37 05:42 Temperature Pulse Rate 74 78 82 Respiratory Rate Blood Pressure Blood Pressure [Left] O2 Sat by Pulse 97 97 97 Oximetry 01/02/19 01/02/19 01/02/19 05:47 05:52 05:57 Temperature Pulse Rate 80 76 81 Respiratory Rate Blood Pressure Blood Pressure [Left] O2 Sat by Pulse 97 96 96 Oximetry 01/02/19 01/02/19 01/02/19 06:02 06:07 06:12 Temperature Pulse Rate 75 77 100 H Respiratory Rate Blood Pressure Blood Pressure [Left] O2 Sat by Pulse 97 98 97 Oximetry 01/02/19 01/02/19 01/02/19 06:17 06:22 06:27 Temperature Pulse Rate 90 94 H 80 Respiratory Rate Blood Pressure Blood Pressure [Left] O2 Sat by Pulse 99 100 99 Oximetry 01/02/19 01/02/19 01/02/19 06:28 06:32 06:37 Temperature Pulse Rate 73 86 89 Respiratory Rate Blood Pressure 130/94 Blood Pressure [Left] O2 Sat by Pulse 99 100 Oximetry 01/02/19 01/02/19 01/02/19 06:42 06:47 06:52 Temperature Pulse Rate 99 H 80 84 Respiratory Rate Blood Pressure Blood Pressure [Left] O2 Sat by Pulse 100 99 100 Oximetry 01/02/19 01/02/19 01/02/19 06:57 07:02 07:07 Temperature Pulse Rate 89 82 85 Respiratory Rate Blood Pressure Blood Pressure [Left] O2 Sat by Pulse 100 98 100 Oximetry 01/02/19 01/02/19 01/02/19 07:12 07:13 07:17 Temperature 97.9 F Pulse Rate 90 100 H 94 H Respiratory 26 H Rate Blood Pressure Blood Pressure 140/84 [Left] O2 Sat by Pulse 100 99 100 Oximetry 01/02/19 01/02/19 01/02/19 07:25 07:27 07:28 Temperature Pulse Rate 100 H 99 H 99 H Respiratory Rate Blood Pressure 140/84 134/81 Blood Pressure [Left] O2 Sat by Pulse 100 Oximetry 01/02/19 01/02/19 01/02/19 07:30 07:37 07:42 Temperature Pulse Rate 100 H 81 94 H Respiratory Rate Blood Pressure 130/67 Blood Pressure [Left] O2 Sat by Pulse 95 97 Oximetry 01/02/19 01/02/19 01/02/19 07:43 07:47 07:52 Temperature Pulse Rate 91 H 94 H 86 Respiratory Rate Blood Pressure 130/60 Blood Pressure [Left] O2 Sat by Pulse 97 96 Oximetry 01/02/19 01/02/19 01/02/19 07:57 08:02 08:07 Temperature Pulse Rate 88 88 84 Respiratory Rate Blood Pressure Blood Pressure [Left] O2 Sat by Pulse 98 97 94 Oximetry 01/02/19 01/02/19 01/02/19 08:08 08:12 08:17 Temperature Pulse Rate 84 89 83 Respiratory Rate Blood Pressure Blood Pressure [Left] O2 Sat by Pulse 94 96 96 Oximetry 01/02/19 01/02/19 01/02/19 08:22 08:27 08:28 Temperature Pulse Rate 83 81 76 Respiratory Rate Blood Pressure 112/69 Blood Pressure [Left] O2 Sat by Pulse 96 97 Oximetry 01/02/19 01/02/19 01/02/19 08:32 08:37 08:42 Temperature Pulse Rate 80 81 81 Respiratory Rate Blood Pressure Blood Pressure [Left] O2 Sat by Pulse 98 97 97 Oximetry 01/02/19 01/02/19 01/02/19 08:47 08:52 08:57 Temperature Pulse Rate 86 81 83 Respiratory Rate Blood Pressure Blood Pressure [Left] O2 Sat by Pulse 99 97 98 Oximetry 01/02/19 09:02 Temperature Pulse Rate 91 H Respiratory Rate Blood Pressure Blood Pressure [Left] O2 Sat by Pulse 99 Oximetry - Exam FHR: auscultation normal, category 1 FHR comments: Baseline 140, moderate variability, 15x15 accels, no decels Uterine Contraction Monitor Mode: External Cervical Dilatation: 8 Cervical Effacement Percentage: 80 station: -1 Uterine Contraction Pattern: Regular Extremities: normal - Labs Labs: Abnormal Labs 01/01/19 01/01/19 01/01/19 19:47 19:47 19:47 RBC 3.44 L Hgb 8.9 L Hct 27.5 L MCH 26 L RDW 16.0 H Sodium 133 L Carbon Dioxide 20 L BUN 6 L Creatinine 0.4 L Uric Acid 3.0 L Magnesium ALT 6 L Albumin 3.3 L Urine WBC (Auto) U Epithel Cells (Auto) 01/02/19 01/02/19 01:00 06:49 RBC Hgb Hct MCH RDW Sodium Carbon Dioxide BUN Creatinine Uric Acid Magnesium 4.50 H ALT Albumin Urine WBC (Auto) 19.0 H U Epithel Cells (Auto) 16.0 H Laboratory Results - last 24 hr 01/01/19 01/01/19 01/01/19 19:47 19:47 19:47 WBC 7.3 RBC 3.44 L Hgb 8.9 L Hct 27.5 L MCV 80 MCH 26 L MCHC 33 RDW 16.0 H Plt Count 216 Sodium 133 L Potassium 3.6 Chloride 99.5 Carbon Dioxide 20 L Anion Gap 17 BUN 6 L Creatinine 0.4 L Estimated GFR > 60 BUN/Creatinine Ratio 15 Glucose 69 Hemoglobin A1c Uric Acid 3.0 L Calcium 8.6 Magnesium Total Bilirubin 0.20 AST 11 ALT 6 L Alkaline Phosphatase 126 Lactate Dehydrogenase 168 Total Protein 6.8 Albumin 3.3 L Albumin/Globulin Ratio 0.9 Urine Color Urine Turbidity Urine pH Ur Specific [place] Urine Protein Urine Glucose (UA) Urine Ketones Urine Blood Urine Nitrite Urine Bilirubin Urine Urobilinogen Ur Leukocyte Esterase Urine WBC (Auto) Urine RBC (Auto) U Epithel Cells (Auto) Urine Bacteria (Auto) Hyaline Casts Urine Mucus Urine Yeast (Budding) Urine Opiates Screen Urine Methadone Screen Ur Barbiturates Screen Ur Phencyclidine Scrn Ur Amphetamines Screen U Benzodiazepines Scrn Urine Cocaine Screen U Marijuana (THC) Screen Drugs of Abuse Note Syphilis IgG Antibody Blood Type Antibody Screen 01/01/19 01/01/19 01/01/19 Unknown Unknown Unknown WBC RBC Hgb Hct MCV MCH MCHC RDW Plt Count Sodium Potassium Chloride Carbon Dioxide Anion Gap BUN Creatinine Estimated GFR BUN/Creatinine Ratio Glucose Hemoglobin A1c 4.8 Uric Acid Calcium Magnesium Total Bilirubin AST ALT Alkaline Phosphatase Lactate Dehydrogenase Total Protein Albumin Albumin/Globulin Ratio Urine Color Urine Turbidity Urine pH Ur Specific [place] Urine Protein Urine Glucose (UA) Urine Ketones Urine Blood Urine Nitrite Urine Bilirubin Urine Urobilinogen Ur Leukocyte Esterase Urine WBC (Auto) Urine RBC (Auto) U Epithel Cells (Auto) Urine Bacteria (Auto) Hyaline Casts Urine Mucus Urine Yeast (Budding) Urine Opiates Screen Urine Methadone Screen Ur Barbiturates Screen Ur Phencyclidine Scrn Ur Amphetamines Screen U Benzodiazepines Scrn Urine Cocaine Screen U Marijuana (THC) Screen Drugs of Abuse Note Syphilis IgG Antibody Non-reactive Blood Type O POSITIVE Antibody Screen Negative 01/02/19 01/02/19 01/02/19 01:00 01:00 06:49 WBC RBC Hgb Hct MCV MCH MCHC RDW Plt Count Sodium Potassium Chloride Carbon Dioxide Anion Gap BUN Creatinine Estimated GFR BUN/Creatinine Ratio Glucose Hemoglobin A1c Uric Acid Calcium Magnesium 4.50 H Total Bilirubin AST ALT Alkaline Phosphatase Lactate Dehydrogenase Total Protein Albumin Albumin/Globulin Ratio Urine Color Yellow Urine Turbidity Cloudy Urine pH 6.0 Ur Specific [place] 1.012 Urine Protein <15 mg/dl Urine Glucose (UA) Neg Urine Ketones Neg Urine Blood Sm Urine Nitrite Neg Urine Bilirubin Neg Urine Urobilinogen < 2.0 Ur Leukocyte Esterase Lg Urine WBC (Auto) 19.0 H Urine RBC (Auto) 5.0 U Epithel Cells (Auto) 16.0 H Urine Bacteria (Auto) 2+ Hyaline Casts 6 Urine Mucus 2+ Urine Yeast (Budding) 1+ Urine Opiates Screen Presumptive negative Urine Methadone Screen Presumptive negative Ur Barbiturates Screen Presumptive negative Ur Phencyclidine Scrn Presumptive negative Ur Amphetamines Screen Presumptive negative U Benzodiazepines Scrn Presumptive negative Urine Cocaine Screen Presumptive negative U Marijuana (THC) Screen Presumptive negative Drugs of Abuse Note Disclamer Syphilis IgG Antibody Blood Type Antibody Screen
[2019-01-02] MEDS ORDERED: BUPIVACAINE/PF (0.25%) 2.5 MG/ML 10 ML VIAL INFILTRATI ONE (10:29)
[2019-01-02] MEDS: OXYTOCIN 20 UNIT/1000ML DRIP 20 UNITS/1,000 ML BAG IV SCH ×2 (13:52→15:19)
--- NOTE | 2019-01-02 14:09 | Procedure Note ---
OB Delivery Note - Delivery Date of Delivery: 01/02/19 (13:45) Surgeon: CLARA LYLE (SATISH) Estimated blood loss: 300cc - Vaginal Delivery presentation: vertex Delivery position: OA Intrapartum events: meconium (terminal) Delivery induction: oxytocin Delivery augmentation: rupture of membranes (AROM @ 09:00) Delivery monitor: external FHT, external uterine Route of delivery: (13:45) Delivery placenta: spontaneous (13:52) Delivery cord: 3 umbilical vessels Episiotomy: none Delivery laceration: none Anesthesia: none Delivery comments: of a vigorous term 6 lbs 5 oz female on 01/02/19 @ 13:45. Baby placed [id number] on maternal abdomen. After 3 mins, umbilical cord double-clamped by SATISH Lyle and cut by FOB. Cord blood collected. Spontaneous delivery of placenta, Viri-side presenting @ 13:52. Moderate lochia present. Fundal massage and IV Pitocin bolus initiated. Fundus F/ML/U-1. Placenta intact, discarded. Perineum intact. No lacerations present. Mom and baby in stable condition. - Infant A at 1 minute: 8 at 5 minutes: 9 (6 lbs 5 oz (2868 gm); 18 in) Gender: Female
[2019-01-02] MEDS ORDERED: ONDANSETRON 4 MG/2 ML INJ IV PRN (14:15)
[2019-01-02] MEDS ORDERED: ACETAMINOPHEN 325 MG TAB PO PRN (14:15)
[2019-01-02] MEDS ORDERED: WITCH HAZEL/ GLYCERIN PAD TP PRN (14:15)
[2019-01-02] MEDS ORDERED: MAGNESIUM HYDROXIDE (MOM) ORAL LIQD UDC PO PRN (14:15)
[2019-01-02] MEDS ORDERED: PROMETHAZINE 25 MG RECT SUPP PR PRN (14:15)
[2019-01-02] MEDS ORDERED: PROMETHAZINE 25 MG TAB PO PRN (14:15)
[2019-01-02] MEDS ORDERED: LANOLIN/ZINC/DIMETHICONE (LANSINOH) 7 GM TP PRN (14:15)
[2019-01-02] MEDS ORDERED: diphenhydrAMINE 25 MG CAP PO PRN (14:15)
[2019-01-02] MEDS: HYDROcodone/ACETAMINOPHEN 5-325 MG TAB PO PRN (16:24)
[2019-01-02] MEDS ORDERED: IBUPROFEN 600 MG TAB PO ONE (21:30)
[2019-01-02] MEDS ORDERED: FERROUS SULFATE 325 MG TAB PO SCH (22:00)
[2019-01-03] MEDS: HYDROcodone/ACETAMINOPHEN 5-325 MG TAB PO PRN ×3 (02:12→16:06)
[2019-01-03] MEDS: IBUPROFEN 600 MG TAB PO SCH ×4 (05:51→23:40)
[2019-01-03] MEDS ORDERED: TETANUS,DIPH,PERTUSS(ACELL) VACCINE 0.5 ML SYRINGE IM ONE (06:00)
[2019-01-03 06:14] LABS: Hemoglobin 6.3 gm/dl (10.1-14.3)
[2019-01-03 06:32] LABS: Hematocrit 19.9 % (30.3-42.9)
[2019-01-03] MEDS: PRENATAL VIT27-FE FUMARATE-FOLIC ACID VIT TAB PO SCH (09:39)
[2019-01-03] MEDS: DOCUSATE SODIUM 100 MG CAP PO SCH ×2 (09:54→21:03)
--- NOTE | 2019-01-03 09:57 | Progress Note ---
Assessment and Plan - Patient Problems (1) (normal spontaneous vaginal delivery) Current Visit: No Status: Acute Plan to address problem: Continue routine PP orders Anticipate d/c home in 24-48 hrs (2) Anemia Current Visit: No Status: Acute Qualifiers: Anemia type: iron deficiency Plan to address problem: Asymptomatic Infed 100 mg IM x 1 dose Increase iron supplementation to TID Colace po BID Increase iron rich foods into diet Call for assistance with ambulation with first time out of bed Repeat H/H in AM Subjective - Subjective Date of service: 01/03/19 Principal diagnosis: IUP @ 40 weeks 3 days; IOL for pre-eclampsia Interval history: See admission H & P; OB delivery summary and PP progress notes Patient reports: appetite normal, voiding normally, pain well controlled, other (Reports that she has not been up to walk to bathroom since mills was removed. Denies any dizziness, but admits to being tired. Discussed low hgb with her. She agrees to Infed injection and increasing iron to TID, but is aware that if Hgb drop any lower or if she becomes symptomatic that blood transfusion is recommended. Verablized understanding and agrees with plan of care.), no flatus, no bowel movement [place]: doing well, bottle feeding Objective - Vital Signs Latest vital signs: Vital Signs Temp Pulse Resp BP BP Pulse Ox 01/03/19 09:39 90 102/63 01/03/19 07:31 98.0 F 94 H 18 105/47 01/03/19 03:56 98.1 F 95 H 20 112/79 97 01/03/19 02:47 77 100 01/03/19 02:42 80 100 01/03/19 02:37 84 100 01/03/19 02:32 86 100 01/03/19 02:27 90 100 01/03/19 02:22 98 H 99 01/03/19 02:17 99 H 99 01/03/19 02:12 85 18 99 01/03/19 02:07 83 97 01/03/19 02:02 83 98 01/03/19 01:57 94 H 98 01/03/19 01:52 84 98 01/03/19 01:47 86 98 01/03/19 01:42 86 98 01/03/19 01:37 88 98 01/03/19 01:32 87 98 01/03/19 01:27 95 H 98 01/03/19 01:22 87 96 01/03/19 01:17 105 H 98 01/03/19 01:12 100 H 99 01/03/19 01:07 101 H 98 01/03/19 01:02 91 H 98 01/03/19 00:57 89 98 01/03/19 00:52 87 98 01/03/19 00:47 86 98 01/03/19 00:42 89 98 01/03/19 00:37 89 98 01/03/19 00:32 88 98 01/03/19 00:27 91 H 98 01/03/19 00:22 91 H 98 01/03/19 00:17 93 H 97 01/03/19 00:12 91 H 97 01/03/19 00:07 93 H 97 01/03/19 00:02 91 H 100 01/02/19 23:57 96 H 100 01/02/19 23:52 92 H 97 01/02/19 23:47 93 H 97 01/02/19 23:42 92 H 97 01/02/19 23:37 92 H 97 01/02/19 23:32 95 H 97 01/02/19 23:27 94 H 97 01/02/19 23:22 92 H 98 01/02/19 23:17 91 H 98 01/02/19 23:12 91 H 98 01/02/19 23:07 98 H 99 01/02/19 23:02 101 H 100 01/02/19 22:57 90 100 01/02/19 22:52 99 H 100 01/02/19 22:47 90 99 01/02/19 22:42 95 H 99 01/02/19 22:37 92 H 99 01/02/19 22:32 94 H 99 01/02/19 22:27 88 99 01/02/19 22:22 91 H 98 01/02/19 22:17 84 91 01/02/19 22:12 108 H 100 01/02/19 22:07 90 98 01/02/19 22:02 97 H 100 01/02/19 21:57 100 H 99 01/02/19 21:52 103 H 99 01/02/19 21:47 97 H 112/67 100 01/02/19 21:42 101 H 100 11/25/19 21:37 121 H 100 19 21:32 96 H 18 100 19 21:27 99 H 100 19 21:22 106 H 99 19 21:17 106 H 98 19 21:12 94 H 99 19 21:07 108 H 100 19 21:02 116 H 99 19 20:57 108 H 100 19 20:52 99 H 99 19 20:47 98 H 99 19 20:42 96 H 98 19 20:37 95 H 97 19 20:32 94 H 97 19 20:27 95 H 97 19 20:22 97 H 97 19 20:17 95 H 97 19 20:12 97 H 97 19 20:07 98 H 98 19 20:02 98 H 97 19 19:57 100 H 97 19 19:52 98 H 96 19 19:47 98 H 96 19 19:42 98 H 96 19 19:37 99 H 96 19 19:32 98 H 96 19 19:27 99 H 97 19 19:22 98 H 96 19 19:17 98 H 96 19 19:12 101 H 97 19 19:07 98 H 97 19 19:02 98 H 96 19 18:57 98 H 97 19 18:52 95 H 97 19 18:47 97 H 97 19 18:42 100 H 100 19 18:37 110 H 100 19 18:32 101 H 100 19 18:27 101 H 100 01/02/19 18:22 102 H 99 01/02/19 18:17 110 H 99 19 18:16 98.8 F 01/02/19 18:12 106 H 130/75 99 01/02/19 18:07 116 H 98 01/02/19 18:02 106 H 100 01/02/19 17:57 110 H 100 01/02/19 17:52 108 H 100 01/02/19 17:47 104 H 100 01/02/19 17:42 103 H 99 01/02/19 17:37 105 H 100 01/02/19 17:32 114 H 100 01/02/19 17:27 111 H 100 01/02/19 17:22 119 H 99 01/02/19 17:17 115 H 100 01/02/19 17:12 107 H 99 01/02/19 17:08 109 H 110/68 01/02/19 17:07 108 H 100 01/02/19 17:02 109 H 100 01/02/19 16:57 115 H 100 01/02/19 16:52 101 H 99 01/02/19 16:47 102 H 99 01/02/19 16:42 100 H 99 01/02/19 16:37 100 H 100 01/02/19 16:32 101 H 100 01/02/19 16:27 105 H 100 01/02/19 16:22 98 H 100 01/02/19 16:17 98 H 100 01/02/19 16:12 115 H 100 01/02/19 16:07 109 H 100 01/02/19 16:05 108 H 116/77 01/02/19 16:02 97 H 99 01/02/19 15:57 107 H 100 01/02/19 15:52 98 H 99 01/02/19 15:47 100 H 99 01/02/19 15:41 95 H 100 01/02/19 15:35 103 H 98 01/02/19 15:30 104 H 100 01/02/19 15:25 99 H 100 01/02/19 15:20 102 H 99 01/02/19 15:15 98 H 100 01/02/19 15:10 99 H 100 01/02/19 15:05 98 H 100 01/02/19 15:00 94 H 100 01/02/19 14:55 99 H 100 01/02/19 14:50 98 H 100 01/02/19 14:45 96 H 100 01/02/19 14:40 101 H 121/85 100 01/02/19 14:35 89 100 01/02/19 14:30 93 H 100 01/02/19 14:25 100 H 100 01/02/19 14:20 103 H 100 01/02/19 14:15 94 H 99 01/02/19 14:10 98 H 100 01/02/19 14:06 94 H 121/78 01/02/19 14:05 90 99 01/02/19 13:32 104 H 100 01/02/19 13:29 91 H 123/86 01/02/19 13:27 91 H 100 01/02/19 13:22 97 H 99 01/02/19 13:17 92 H 100 01/02/19 13:12 87 99 01/02/19 13:07 94 H 100 01/02/19 13:02 81 98 01/02/19 12:57 80 99 01/02/19 12:52 83 100 01/02/19 12:47 89 100 01/02/19 12:42 96 H 100 01/02/19 12:40 91 H 128/90 01/02/19 12:37 77 100 01/02/19 12:32 77 99 01/02/19 12:28 87 128/90 01/02/19 12:27 85 99 01/02/19 12:22 80 100 01/02/19 12:17 86 99 01/02/19 12:12 79 100 01/02/19 12:08 98.3 F 01/02/19 12:07 79 99 01/02/19 12:02 79 98 01/02/19 11:57 84 99 01/02/19 11:52 78 100 01/02/19 11:47 85 100 01/02/19 11:42 91 H 100 01/02/19 11:37 78 100 01/02/19 11:32 89 99 01/02/19 11:29 84 107/74 01/02/19 11:27 77 97 01/02/19 11:22 81 97 01/02/19 11:17 76 96 01/02/19 11:12 80 97 01/02/19 11:07 83 95 01/02/19 11:02 78 97 01/02/19 10:57 74 97 01/02/19 10:52 75 97 01/02/19 10:47 73 97 01/02/19 10:42 80 95 01/02/19 10:37 82 95 01/02/19 10:32 77 95 01/02/19 10:29 79 96/55 94 01/02/19 10:27 82 95 01/02/19 10:22 86 95 01/02/19 10:17 81 95 01/02/19 10:12 79 95 01/02/19 10:07 80 98 01/02/19 10:02 76 96 01/02/19 10:00 82 94 01/02/19 09:57 80 98 01/02/19 09:52 100 H 99 Intake and Output 01/02/19 01/03/19 01/03/19 23:59 07:59 15:59 Intake Total 900 480 Output Total 900 Balance 0 480 Intake: Oral 650 480 Intake, Free Water 250 Output: Urine 900 Indwelling Catheter 900 Other: Total, Intake Amount 650 480 Total, Output Amount 900 # Voids Indwelling Catheter 1 - Exam Breasts: Present: normal Cardiovascular: Present: Regular rate Lungs: Present: Normal air movement Abdomen: Present: soft Uterus: Present: firm, fundal height below umbilicus (U-1) Extremities: Present: normal Deep Tendon Reflex Grade: Normal +2 - Labs Labs: Abnormal lab results 01/02/19 01/02/19 01/02/19 Range/Units 11:33 16:00 21:55 Hgb (10.1-14.3) gm/dl Hct (30.3-42.9) % Magnesium 5.20 H 4.80 H 4.40 H (1.7-2.3) mg/dL 01/03/19 Range/Units 05:55 Hgb 6.3 L (10.1-14.3) gm/dl Hct 19.9 L* D (30.3-42.9) % Magnesium (1.7-2.3) mg/dL
[2019-01-03] MEDS ORDERED: IRON DEXTRAN COMPLEX 100 MG/2 ML INJ IM NR (10:30)
--- NOTE | 2019-01-03 13:59 | Post Anesthesia Evaluation ---
- Post Anesthesia Evaluation Patient Participated: Yes Airway Patent: Yes Stable Respiratory Function: Yes Nausea/Vomiting: No Temp > 96.8F: Yes Pain Manageable: Yes Adequeate Hydration: Yes Anesthesia Complications: No Block Receding Appropriately: Yes Patient on Ventilator: No
[2019-01-03] MEDS: FERROUS SULFATE 325 MG TAB PO SCH ×2 (16:00→21:03)
[2019-01-04 05:26] LABS: Hemoglobin 5.9 gm/dl (10.1-14.3)
[2019-01-04 05:27] LABS: Hematocrit 18.9 % (30.3-42.9)
[2019-01-04] MEDS: IBUPROFEN 600 MG TAB PO SCH ×3 (06:05→21:13)
[2019-01-04] MEDS ORDERED: SODIUM CHLORIDE 0.9% 500 ML 500 ML IV ONE (07:45)
[2019-01-04] MEDS: PRENATAL VIT27-FE FUMARATE-FOLIC ACID VIT TAB PO SCH (10:51)
[2019-01-04] MEDS: HYDROcodone/ACETAMINOPHEN 5-325 MG TAB PO PRN ×3 (10:51→23:25)
[2019-01-04] MEDS: FERROUS SULFATE 325 MG TAB PO SCH ×3 (10:52→21:13)
[2019-01-04] MEDS: DOCUSATE SODIUM 100 MG CAP PO SCH ×2 (10:52→21:13)
[2019-01-04] MEDS ORDERED: SODIUM CHLORIDE 0.9% 250ML 250 ML ONE (12:07)
--- NOTE | 2019-01-04 19:36 | Event Note ---
Date: 01/04/19 Patient was seen this morning after being called due to concern of passage of vaginal blood clots with suspected placental tissue within. I did get to see the tissue and the does look like there was some placental tissue placental membrane that was passed today. Patient though is day 2 after vaginal delivery and patient did not have any significant bleeding that she noted yesterday. Patient noted that she passed some small clots yesterday but no significantly heavy bleeding. This morning the bleeding was heavy and then once she passed this above-noted tissue her bleeding has lightened up significantly. Patient was seen this morning and again this evening. This morning a bimanual exam was done. There was minimal blood in the vaginal vault. The cervix was maybe a fingertip dilated. No membranous tissue was noted. I could not put a finger into the uterus to examine due to patient intolerance but the uterus did palpate firm at the umbilicus -2 cm. Also since the passage of that tissue this morning the patient's nurse knows that no such tissue has been passed. Patient is also currently receiving PRBCs as she had symptomatic anemia and her hemoglobin was 5.9. Patient also notes that after her last delivery she needed a D&C on day 1 but patient had continuous nonstop bleeding from the delivery to the time of the D&C. A/P - passage of retained POCs on PPD 2. An ultrasound was ordered to see if there was any obvious retained products of conception still left. Also continue to observe the patient overnight to see if there is a recurrence of any significant heavy bleeding or passage of any other placental tissue - anemia- pt received 2 units PRBCs. check CBC in am.
--- NOTE | 2019-01-04 20:09 | Ultrasound Report ---
Pelvic ultrasound INDICATION: 4 days , vaginal bleeding TECHNIQUE: Transabdominal FINDINGS: Uterus measures 20.4 x 11.2 x 14.7 cm. Endometrial stripe is thickened at 2.5 cm and has a heterogenous appearance. Moderate hyperechogenicity is seen rather diffusely in the endometrial canal . I do not see significant increased blood flow within the hyperechoic portion however. There is mild flow seen at the margins of the endometrial canal including a small hypoechoic area in the lower fun dus anteriorly. No focal uterine masses are seen. Only a trace of free fluid is noted. Adnexal areas were difficult to evaluate and ovaries are not lavelle ntified. No obvious adnexal mass is seen. IMPRESSION: Enlarged uterus is noted with moderate prominence and moderate echogenicity se en in the endometrial canal. This could just represent blood in the canal given the history. Though o nly peripheral endometrial vascularity is demonstrated, I cannot rule out the possibility of retained products of conception. Follow-up and clinical correlation are suggested. Signer Name: Julián Zapien MD Signed: 01/04/2019 8:04 PM Workstation Name: [id number]
[2019-01-05] MEDS: IBUPROFEN 600 MG TAB PO SCH ×3 (03:18→16:55)
[2019-01-05 06:30] LABS: Hematocrit 23.4 % (30.3-42.9); Hemoglobin 7.5 gm/dl (10.1-14.3)
[2019-01-05 08:29] VITALS: BP 128/85
[2019-01-05] MEDS: PRENATAL VIT27-FE FUMARATE-FOLIC ACID VIT TAB PO SCH (10:04)
[2019-01-05] MEDS: FERROUS SULFATE 325 MG TAB PO SCH (10:07)
--- NOTE | 2019-01-05 15:40 | Progress Note ---
Assessment and Plan (1) (normal spontaneous vaginal delivery) Current Visit: No Status: Acute Plan to address problem: PPD#3 s/p Continue routine PP orders Desires discharge home today (2) Anemia Current Visit: No Status: Acute Qualifiers: Anemia type: iron deficiency Plan to address problem: S/P 2 units PRBCs and Infed 100 mg IM x 1 dose Continue iron supplementation Colace po BID Increase iron rich foods into diet Asymptomatic today Subjective - Subjective Date of service: 01/05/19 Principal diagnosis: PPD#3 s/p , Anemia Interval history: See H&P and delivery note Patient reports: appetite normal, voiding normally, pain well controlled, flatus, ambulating normally, no dizzy ambulation (Denies) : doing well, bottle feeding Objective - Vital Signs Latest vital signs: Vital Signs Temp Pulse Resp BP BP Pulse Ox 01/05/19 08:28 98.0 F 74 14 128/85 01/05/19 04:35 97.3 F L 77 24 87/43 98 01/05/19 03:18 18 01/05/19 01:03 98.4 F 91 H 20 109/73 98 01/04/19 23:25 18 01/04/19 21:13 81 18 125/80 01/04/19 16:35 98.7 F 89 18 129/79 01/04/19 15:57 98.2 F 93 H 16 110/67 98 Intake and Output 01/04/19 01/05/19 01/05/19 23:59 07:59 15:59 Intake Total 480 Output Total 1200 Balance -720 Intake: Oral 480 Output: Urine 1200 Indwelling Catheter 1200 Other: Total, Intake Amount 480 Total, Output Amount 1200 # Voids Indwelling Catheter 2 - Exam Breasts: Present: normal Cardiovascular: Present: Regular rate, Normal S1, Normal S2, No murmurs Lungs: Present: Clear to auscultation, Normal air movement Abdomen: Present: normal appearance, soft, normal bowel sounds. Absent: d istention Vulva: both: normal Uterus: Present: firm, fundal height below umbilicus (-2) Extremities: Present: normal - Labs Labs: Abnormal lab results 01/04/19 01/05/19 Range/Units 08:44 04:51 Hgb 7.5 L (10.1-14.3) gm/dl Hct 23.4 L (30.3-42.9) % Crossmatch See Detail
--- NOTE | 2019-01-05 15:43 | Discharge Summary ---
Providers - Providers Date of Admission: 01/01/19 22:50 Date of discharge: 01/05/19 Attending physician: ELIEZER CARTER MD Primary care physician: ELIEZER CARTER MD Hospitalization Delivery: Procedure details: See H&P and delivery note Episiotomy: none Laceration: none complications: transfusion (Transfused 2 units PRBCs) Discharge diagnosis: IUP at term delivered Condition at discharge: Good Disposition: DC-01 TO HOME OR SELFCARE Plan - Provider Discharge Summary Activity: routine, no sex for 6 weeks, no heavy lifting 4 weeks, no strenuous exercise Diet: routine Instructions: routine Additional instructions: [] Smoking cessation referral if applicable(refer to patient education folder for contact #) [] Refer to [facility] Booklet Call your doctor immediately for: * Fever > 100.5 * Heavy vaginal bleeding ( >1 pad per hour) * Severe persistent headache * Shortness of breath * Reddened, hot, painful area to leg or breast * Drainage or odor from incision. * Keep incision clean and dry at all times and follow doctor's instructions regarding bathing/showering Anemia. Pt to continue iron supplement at home with Ferrous sulfate 325mg PO BID - Follow up plan Follow up: ELIEZER CARTER MD [Primary Care Provider] - 7 Days
== END 2019-01-05 16:30 | disposition home or self-care (01) | DRG 774 ==
LOC: TRG 17:14 → EEVIPCON 22:50 → LD 22:50 → OB 01-03 04:11
PROVIDERS: ADMIT Obstetrics & Gynecology; ATTEND Obstetrics & Gynecology
PROC: 10E0XZZ Delivery of Products of Conception, External Approach (ICD-10-PCS; 2019-01-02)
PROC: 3E033VJ Introduction of Other Hormone into Peripheral Vein, Percutaneous Approach (ICD-10-PCS; 2019-01-02)
PROC: 10907ZC Drainage of Amniotic Fluid, Therapeutic from Products of Conception, Via Natural or Artificial Opening (ICD-10-PCS; 2019-01-02)
PROC: 3E0234Z Introduction of Serum, Toxoid and Vaccine into Muscle, Percutaneous Approach (ICD-10-PCS; principal; 2019-01-03)
PROC: 30233N1 Transfusion of Nonautologous Red Blood Cells into Peripheral Vein, Percutaneous Approach (ICD-10-PCS; 2019-01-04)
DX: O99.824 Streptococcus B carrier state complicating childbirth (principal); O72.2 Delayed and secondary postpartum hemorrhage; O99.02 Anemia complicating childbirth; O11.4 Pre-existing hypertension with pre-eclampsia, complicating childbirth; D50.9 Iron deficiency anemia, unspecified; O77.0 Labor and delivery complicated by meconium in amniotic fluid; E66.9 Obesity, unspecified; O99.214 Obesity complicating childbirth; Z3A.40 40 weeks gestation of pregnancy; Z37.0 Single live birth; Z23 Encounter for immunization; Z88.0 Allergy status to penicillin; Z88.8 Allergy status to other drugs, medicaments and biological substances; Z79.899 Other long term (current) drug therapy
CPT/HCPCS: 36415; 76815; 76819; 76856; 80053; 80307; 81001; 83036; 83615; 83735; 84550; 85014; 85018; 85027; 86592; 86850; 86900; 86901; 86920; 87086; 90471; 90715; G0378; J1750; J2590; J3010; J3475; J7050; J7120; P9016

== ENCOUNTER 2021-06-07 12:56 | Emergency (ER) | payer MEDICAID ==
[2021-06-07] MEDS ORDERED: ONDANSETRON 4 MG/2 ML INJ IV ONE (13:27)
[2021-06-07] MEDS ORDERED: MORPHINE 4 MG/1 ML INJ IV ONE (13:27)
--- NOTE | 2021-06-07 13:40 | Emergency Department Report ---
ED General Adult HPI - General Chief complaint: Abdominal Pain Stated complaint: 8 WEEKS POSS MISCARRIAGE Time Seen by Provider: 06/07/21 13:08 Source: EMS Mode of arrival: Stretcher Limitations: No Limitations - History of Present Illness Initial comments: Patient presents with complaints of lower abdominal pain, sharp/cramping, non radiating, 10/10, not worsened or relieved by anything. Endorses nausea, non bloody, non bilious vomiting. Last BM was today and formed. Endorses flatulence. Denies dysuria, frequency, urgency. Reports vaginal bleeding x 1 day. LMP was the 2nd week of March, during which her period was prolonged x 2 weeks. Has a hx of irregular periods. - Related Data Home Medications Medication Instructions Recorded Confirmed Last Taken Vit 90/Iron Fum/Folic 1 tab PO DAILY 03/30/14 01/03/19 08/06/17 10:00 [ Formula] Previous Rx's Medication Instructions Recorded Last Taken Type Ferrous Sulfate [Feosol 325 MG tab] 325 mg PO QDAY #30 tablet 12/22/15 08/06/17 10:00 Rx Vit No.130/Iron/Folic 1 each PO QDAY #30 tablet 12/26/16 12/28/18 08:00 Rx [ Tablet] Ferrous Sulfate [Feosol 325 MG tab] 325 mg PO BID #90 tablet 08/07/17 Unknown Rx Ibuprofen [Motrin 800 MG tab] 800 mg PO Q8HR PRN #30 tablet 08/07/17 Unknown Rx Docusate Sodium [Colace] 100 mg PO BID PRN #30 capsule 08/08/17 Unknown Rx Ciprofloxacin HCl [Cipro] 500 mg PO BID #28 tablet 11/05/17 Unknown Rx DOXYCYCLINE Hyclate [Vibramycin 100 mg PO Q12HR #28 capsule 11/05/17 Unknown Rx CAP] Ibuprofen [Motrin] 800 mg PO Q8HR PRN #30 tablet 11/05/17 Unknown Rx Ondansetron [Zofran ODT TAB] 8 mg PO Q8HR PRN #20 tab.rapdis 11/05/17 Unknown Rx metroNIDAZOLE [Flagyl] 500 mg PO Q12HR #28 tab 11/05/17 Unknown Rx Acetaminophen/Codeine [Tylenol 1 tab PO Q6H PRN 3 Days #12 tab 06/07/21 Unknown Rx /Codeine # 3 tab] Metoclopramide [Reglan TAB] 1 tab PO Q6H PRN #30 tab 06/07/21 Unknown Rx Allergies Allergy/AdvReac Type Severity Reaction Status Date / Time amoxicillin Allergy Hives Verified 02/21/17 19:24 haloperidol [From Haldol] Allergy Hives Verified 02/02/13 12:52 haloperidol lactate Allergy Hives Verified 02/02/13 12:52 [From Haldol] Penicillins Allergy Hives Verified 02/02/13 12:52 ED Review of Systems ROS: Stated complaint: 8 WEEKS POSS MISCARRIAGE Other details as noted in HPI Comment: All other systems reviewed and negative Constitutional: denies: chills, fever ED Past Medical Hx - Past Medical History Hx Hypertension: Yes Hx Congestive Heart Failure: No Hx Diabetes: No Hx Deep Vein Thrombosis: No Hx Renal Disease: No Hx Sickle Cell Disease: No Hx Seizures: No Hx Asthma: No Hx COPD: No Hx HIV: No Additional medical history: prenatel vit - Surgical History Past Surgical History?: No Additional Surgical History: d&c - Social History Smoking Status: Never Smoker - Medications Home Medications: Home Medications Medication Instructions Recorded Confirmed Last Taken Type Vit 90/Iron Fum/Folic 1 tab PO DAILY 03/30/14 01/03/19 08/06/17 10:00 History [ Formula] Ferrous Sulfate [Feosol 325 MG tab] 325 mg PO QDAY #30 tablet 12/22/15 01/03/19 08/06/17 10:00 Rx Vit No.130/Iron/Folic 1 each PO QDAY #30 tablet 12/26/16 01/03/19 12/28/18 08:00 Rx [ Tablet] Ferrous Sulfate [Feosol 325 MG tab] 325 mg PO BID #90 tablet 08/07/17 01/03/19 Unknown Rx Ibuprofen [Motrin 800 MG tab] 800 mg PO Q8HR PRN #30 tablet 08/07/17 01/03/19 Unknown Rx Docusate Sodium [Colace] 100 mg PO BID PRN #30 capsule 08/08/17 01/03/19 Unknown Rx Ciprofloxacin HCl [Cipro] 500 mg PO BID #28 tablet 11/05/17 01/03/19 Unknown Rx DOXYCYCLINE Hyclate [Vibramycin 100 mg PO Q12HR #28 capsule 11/05/17 01/03/19 Unknown Rx CAP] Ibuprofen [Motrin] 800 mg PO Q8HR PRN #30 tablet 11/05/17 01/03/19 Unknown Rx Ondansetron [Zofran ODT TAB] 8 mg PO Q8HR PRN #20 tab.rapdis 11/05/17 01/03/19 Unknown Rx metroNIDAZOLE [Flagyl] 500 mg PO Q12HR #28 tab 11/05/17 01/03/19 Unknown Rx Acetaminophen/Codeine [Tylenol 1 tab PO Q6H PRN 3 Days #12 tab 06/07/21 Unknown Rx /Codeine # 3 tab] Metoclopramide [Reglan TAB] 1 tab PO Q6H PRN #30 tab 06/07/21 Unknown Rx ED Physical Exam - General Limitations: No Limitations General appearance: alert, in no apparent distress - Head Head exam: Present: atraumatic, normocephalic - Eye Eye exam: Present: PERRL, EOMI - ENT ENT exam: Present: mucous membranes moist, other (airway patent) - Neck Neck exam: Present: other (supple; no JVD) - Respiratory Respiratory exam: Present: other (good air entry, nml I:E, CTAB, no use of VARSHA ) - Cardiovascular Cardiovascular Exam: Present: regular rate. Absent: rubs, gallop - GI/Abdominal GI/Abdominal exam: Present: other (distended, normal BS, tender to palpation in suprapubic region; no involuntary guarding or rebound tenderness) - Extremities Exam Extremities exam: Present: other (no lower extremity edema; non tender calves; neg Vern's sign bilaterally) - Back Exam Back exam: Present: full ROM. Absent: CVA tenderness (R), CVA tenderness (L) - Neurological Exam Neurological exam: Present: alert, oriented X3, CN II-XII intact. Absent: motor sensory deficit - Skin Skin exam: Present: warm, normal color ED Course Vital Signs 06/07/21 13:12 O2 Sat by Pulse 100 Oximetry ED Medical Decision Making - Lab Data Result diagrams: 06/07/21 13:34 06/07/21 13:34 Laboratory Tests 06/07/21 06/07/21 06/07/21 13:34 13:34 13:34 WBC 9.4 RBC 4.13 Hgb 8.6 L Hct 27.5 L MCV 67 L MCH 21 L MCHC 31 RDW 22.3 H Plt Count 257 Lymph % (Auto) 25.9 [place] % (Auto) 10.1 H Eos % (Auto) 0.1 Baso % (Auto) 0.7 Lymph # (Auto) 2.4 [place] # (Auto) 1.0 H Eos # (Auto) 0.0 Baso # (Auto) 0.1 Seg Neutrophils % 63.2 Seg Neutrophils # 6.0 Sodium 137 Potassium 3.8 Chloride 102.3 Carbon Dioxide 16 L Anion Gap 23 BUN 6 L Creatinine 0.6 Estimated GFR > 60 BUN/Creatinine Ratio 10 Glucose 85 Calcium 9.6 Total Bilirubin 0.30 AST 21 ALT 20 Alkaline Phosphatase 61 Total Protein 7.3 Albumin 4.7 Albumin/Globulin Ratio 1.8 Lipase 17 HCG, Qual HCG, Quant 15852 H Urine Color Urine Turbidity Urine pH Ur Specific [place] Urine Protein Urine Glucose (UA) Urine Ketones Urine Blood Urine Nitrite Urine Bilirubin Urine Urobilinogen Ur Leukocyte Esterase Urine WBC (Auto) Urine RBC (Auto) U Epithel Cells (Auto) 06/07/21 06/07/21 13:34 Unknown WBC RBC Hgb Hct MCV MCH MCHC RDW Plt Count Lymph % (Auto) [place] % (Auto) Eos % (Auto) Baso % (Auto) Lymph # (Auto) [place] # (Auto) Eos # (Auto) Baso # (Auto) Seg Neutrophils % Seg Neutrophils # Sodium Potassium Chloride Carbon Dioxide Anion Gap BUN Creatinine Estimated GFR BUN/Creatinine Ratio Glucose Calcium Total Bilirubin AST ALT Alkaline Phosphatase Total Protein Albumin Albumin/Globulin Ratio Lipase HCG, Qual Positive HCG, Quant Urine Color Yellow Urine Turbidity Clear Urine pH 9.0 H Ur Specific [place] 1.016 Urine Protein 30 mg/dl Urine Glucose (UA) Neg Urine Ketones 20 Urine Blood Neg Urine Nitrite Neg Urine Bilirubin Neg Urine Urobilinogen < 2.0 Ur Leukocyte Esterase Sm Urine WBC (Auto) 2.0 Urine RBC (Auto) 1.0 U Epithel Cells (Auto) 4.0 Type and Rh per blood bank staff O+ in system. Transvaginal US: single IUP @ 7 weeks and 1 day; FHR 150s; cervix 4 cm and joce sed (wet read per US tech) - Medical Decision Making Diff dz: likely 2/2 threatened spontaneous . UTI, ectopic ruled out. No signs of appendicitis, SBO or other acute surgical abdomen @ this time. Critical care attestation.: If time is entered above; I have spent that time in minutes in the direct care of this critically ill patient, excluding procedure time. ED Disposition Clinical Impression: Abdominal pain during in first trimester, Threatened spontaneous Disposition: HOME / SELF CARE / HOMELESS Is pt being admited?: No Does the pt Need Aspirin: No Condition: Stable Instructions: Threatened Miscarriage, [id number], Abdominal Pain During , Abdominal Pain (ED) Additional Instructions: Return to the ER if your symptoms worsen. Prescriptions: Metoclopramide [Reglan TAB] 1 tab PO Q6H PRN #30 tab PRN Reason: Nausea And Vomiting Acetaminophen/Codeine [Tylenol /Codeine # 3 tab] 1 tab PO Q6H PRN 3 Days #12 tab PRN Reason: Pain , Severe (7-10) Referrals: HAIM OCASIO MD [Staff Physician] - 3-5 Days Time of Disposition: 17:30 ([facility] data reviewed)
[2021-06-07 14:23] LABS: Basophils # (Auto) 0.1 K/mm3 (0.0-0.1); Basophils % (Auto) 0.7 % (0.0-1.8); Eosinophils % (Auto) 0.1 % (0.0-4.3); Hematocrit 27.5 % (30.3-42.9); Hemoglobin 8.6 gm/dl (10.1-14.3); Lymphocytes # (Auto) 2.4 K/mm3 (1.2-5.4); Lymphocytes % (Auto) 25.9 % (13.4-35.0); Mean Corpuscular HGB Conc 31 % (30-34); Monocytes % (Auto) 10.1 % (0.0-7.3); Platelet Count 257 K/mm3 (140-440); Red Blood Count 4.13 M/mm3 (3.65-5.03)
[2021-06-07 14:32] LABS: Mean Corpuscular Volume 67 fl (79-97); Red Cell Distribution Width 22.3 % (13.2-15.2)
--- NOTE | 2021-06-07 15:25 | Ultrasound Report ---
ULTRASOUND OBSTETRIC INDICATION / CLINICAL INFORMATION: abdominal pain and vaginal bleeding in early . Beta hCG u nknown. Last menstrual period: 03-25-21 TECHNIQUE: Transabdominal. COMPARISON: None available. FINDINGS: GESTATIONAL SAC: Well-defined oval shape and intrauterine in location. Gestational sac measures 1.8 x 1.1 cm. YOLK SAC: No significant abnormality. EMBRYO/FETUS: No significant abnormality. - Ferriday-Rump Length = 1.1 cm = 7, 1 weeks, days - Heart Rate, beats per minute (if present) = 151 ADNEXA: No significant abnormality. FREE FLUID: Trace fluid in the cul-de-sac. ADDITIONAL FINDINGS: None. IMPRESSION: 1. Single, living intrauterine with estimated sonographic age of 7 weeks 1 day by crown-rum p length. 2. Trace free fluid in the cul-de-sac is nonspecific. Signer Name: Silverio Cedeno MD Signed: 06/07/2021 3:21 PM Workstation Name: [id number]
[2021-06-07] MEDS ORDERED: HYDROmorphone 1 MG/1 ML INJ IM ONE (16:04)
[2021-06-07 16:19] LABS: Alanine Aminotransferase 20 units/L (7-56); Albumin 4.7 g/dL (3.9-5); Blood Urea Nitrogen 6 mg/dL (7-17); Calcium 9.6 mg/dL (8.4-10.2); Hemolysis Index 7
[2021-06-07 16:23] LABS: BUN/Creatinine Ratio 10
[2021-06-07 17:09] LABS: Bilirubin,Urine NEG (Negative); Blood,Urine NEG (Negative); Color,Urine Yellow (Yellow); Urobilinogen,Urine < 2.0 mg/dL (<2.0)
== END 2021-06-07 18:32 | disposition home or self-care (01) ==
LOC: ED 12:56
DX: O26.891 Other specified pregnancy related conditions, first trimester (principal); R10.30 Lower abdominal pain, unspecified; O20.0 Threatened abortion; Z3A.01 Less than 8 weeks gestation of pregnancy; I10 Essential (primary) hypertension; Z79.899 Other long term (current) drug therapy; Z88.6 Allergy status to analgesic agent; Z88.1 Allergy status to other antibiotic agents; Z88.0 Allergy status to penicillin; Z91.09 Other allergy status, other than to drugs and biological substances
CPT/HCPCS: 36415; 76817; 80053; 81001; 83690; 84702; 84703; 85025; 96372; 96374; 96375; 99284; J1170; J2270; J2405